=== PATIENT | male | born 1955 | race Caucasian/White ===

== ENCOUNTER 2017-05-18 16:32 | Inpatient (IN) | payer MEDICAID ==
[~2017-05-18] VITALS: Ht 198.1 cm; Wt 71.2 kg
[~2017-05-18 16:32] MED LIST: AMLO10TA2 PO; AMOX PO; AMOX500C2 PO; CARV25TA PO; CHOL100018 PO; LEVO50TA11 PO; MAGN400T25 PO; MYCOPHENOLATE PO; PANT40TA25 PO; TACR1CAP23 PO; [UNRECOGNIZED DRUG - OTHER] PO
[2017-05-18 17:16] LABS: BASOPHILS % (AUTO) 0.1 % (0.0-5.0); EOSINOPHILS % (AUTO) 0.1 % (0.0-8.0); HEMATOCRIT 24.8 % (42-54); LYMPHOCYTES % (AUTO) 1.8 % (21.0-51.0); MEAN CORPUSCULAR HEMOGLOBIN 30.3 pg (27.0-33.0); MEAN CORPUSCULAR HGB CONC 33.3 g/dL (32.0-36.0); MONOCYTES % (AUTO) 5.2 % (3.0-13.0); NEUTROPHILS % (AUTO) 92.8 % (40.0-77.0); NUCLEATED RED BLOOD CELLS 0.1 % (0.0-0.19); PLATELET COUNT (AUTO) 182 K/uL (130-400); RED BLOOD CELL COUNT(AUTO) 2.72 MIL/uL (4.50-6.20); RED CELL DISTRIBUTION WIDTH 15.9 % (11.0-15.5); WHITE BLOOD COUNT (AUTO) 5.3 K/uL (4.8-10.8)
[2017-05-18 17:39] LABS: APPEARANCE,URINE CLOUDY (CLEAR); BILIRUBIN,URINE NEGATIVE (NEGATIVE); COLOR,URINE YELLOW (YELLOW); GLUCOSE, URINE (UA) >=1000 mg/dL (NEGATIVE); KETONES,URINE NEGATIVE (NEGATIVE); LEUKOCYTE ESTERASE ,URINE SMALL (NEGATIVE); NITRATE,URINE NEGATIVE (NEGATIVE); OCCULT BLOOD,URINE TRACE-INTACT (NEGATIVE); PH,URINE 5.5 (5.0-8.0); PROTEIN,URINE NEGATIVE (NEGATIVE); UROBILINOGEN,URINE 0.2 mg/dL (0.2-1.0)
[2017-05-18 17:45] LABS: ALANINE AMINOTRANSFERASE 15 U/L (12-78); ALBUMIN 1.5 g/dL (3.5-5.0); ASPARTATE AMINOTRANSFERASE 9 U/L (10-37); BILIRUBIN,TOTAL 0.4 mg/dL (0.2-1.0); CARBON DIOXIDE 26 mmol/L (21-32); CHLORIDE 95 mmol/L (101-111); CREATINE KINASE MB < 0.5 ng/mL (0.5-3.6); CREATINE KINASE, TOTAL 11 U/L (21-232); CREATININE 1.1 mg/dL (0.5-1.5); GLOMERULAR FILTR. RATE CALC 73 mL/min (>60); POTASSIUM 4.8 mmol/L (3.5-5.1); SODIUM SERUM 128 mmol/L (136-145); TOTAL PROTEIN, SERUM 6.3 g/dL (6.0-8.3); UREA NITROGEN, BLOOD 22 mg/dL (7-18)
[2017-05-18 17:45] LABS: BACTERIA,URINE Few /HPF (None Seen); RBC,URINE 0-1 /HPF (0-1); YEAST,URINE BUDDING Many /HPF (None Seen)
[2017-05-18 17:47] LABS: GLUCOSE,RANDOM 581 mg/dL (70-105)
[2017-05-18] MEDS ORDERED: ONDANSETRON HCL 4 MG/2 ML VIAL ONE (18:25)
[2017-05-18] MEDS ORDERED: MORPHINE SULFATE 4 MG/1ML SYG ONE (18:25)
[2017-05-18] MEDS ORDERED: SODIUM CHLORIDE 0.9% 1000ML 1,000 ML IV ONE (19:48)
[2017-05-18] MEDS ORDERED: INSULIN HUMULIN R 100 UNIT/ML 3ML ONE (19:49)
[2017-05-18] MEDS ORDERED: CEFTRIAXONE SODIUM 1 GM ONE (20:55)
[2017-05-18] MEDS ORDERED: POTASSIUM CHLORIDE 10% ELIXIR 20 MEQ/15 ML UDCUP PO PRN (21:30)
[2017-05-18] MEDS ORDERED: LIDOCAINE HCL-MPF 1% 2ML VIAL IJ PRN (21:30)
[2017-05-18] MEDS ORDERED: POTASSIUM CHLORIDE 20MEQ/100ML 100 ML IV PRN (21:30)
[2017-05-18] MEDS ORDERED: CLONIDINE HCL 0.1 MG TABLET PO PRN (21:30)
[2017-05-18] MEDS ORDERED: GLUCAGON 1MG KIT 1 MG ML IM PRN (21:30)
[2017-05-18] MEDS ORDERED: NITROGLYCERIN 0.4 MG SL TAB SL PRN (21:30)
[2017-05-18] MEDS ORDERED: LACTULOSE 20 GM/30 ML UDCUP PO PRN (21:30)
[2017-05-18] MEDS ORDERED: ACETAMINOPHEN 325 MG TAB PO PRN (21:30)
[2017-05-18] MEDS ORDERED: ZOLPIDEM TARTRATE 5 MG TAB PO PRN (21:30)
[2017-05-18] MEDS ORDERED: DEXTROSE 50%-WATER 50 ML DISP.SYRIN IV PRN (21:30)
[2017-05-18] MEDS ORDERED: POTASSIUM CHLORIDE 20 MEQ ERTAB PO PRN (21:30)
[2017-05-18] MEDS ORDERED: SODIUM CHLORIDE 0.9% 1000ML 1,000 ML IV SCH (21:30)
[2017-05-19] MEDS ORDERED: SODIUM CHLORIDE 0.9% 1000ML 1,000 ML IV SCH (01:23)
[2017-05-19] MEDS ORDERED: POTASSIUM CHLORIDE 20MEQ/100ML 100 ML IV PRN (01:30)
[2017-05-19] MEDS ORDERED: POTASSIUM CHLORIDE 10% ELIXIR 20 MEQ/15 ML UDCUP PO PRN (01:30)
[2017-05-19] MEDS ORDERED: LACTULOSE 20 GM/30 ML UDCUP PO PRN (01:30)
[2017-05-19] MEDS ORDERED: ONDANSETRON HCL 4 MG/2 ML VIAL IVP PRN (01:30)
[2017-05-19] MEDS ORDERED: POTASSIUM CHLORIDE 20 MEQ ERTAB PO PRN (01:30)
[2017-05-19] MEDS ORDERED: DEXTROSE 50%-WATER 50 ML DISP.SYRIN IV PRN (01:30)
[2017-05-19] MEDS ORDERED: MORPHINE SULFATE 2 MG/ML 1ML SYG IVP PRN ×2 (01:30)
[2017-05-19] MEDS ORDERED: ACETAMINOPHEN 325 MG TAB PO PRN (01:30)
[2017-05-19] MEDS ORDERED: GLUCAGON 1MG KIT 1 MG ML IM PRN (01:30)
[2017-05-19] MEDS ORDERED: LIDOCAINE HCL-MPF 1% 2ML VIAL IVP PRN (01:30)
[2017-05-19 01:45] VITALS: BP 99/58
[2017-05-19] MEDS ORDERED: METF500T6 PO (02:43)
[2017-05-19] MEDS ORDERED: ACET-2743 PO (02:43)
[2017-05-19] MEDS ORDERED: MAGOX PO (02:43)
[2017-05-19] MEDS ORDERED: HYDR-4064 PO (02:43)
[2017-05-19] MEDS ORDERED: FERR-82 PO (02:43)
[2017-05-19] MEDS ORDERED: LEVO50TA11 PO (02:43)
[2017-05-19] MEDS ORDERED: TACR1CAP10 PO ×2 (02:43)
[2017-05-19] MEDS ORDERED: PRED20TA3 PO (02:43)
[2017-05-19] MEDS ORDERED: MEROPENEM 1 GM VIAL IVP SCH (03:00)
[2017-05-19 04:00] VITALS: BP 102/61
[2017-05-19 04:55] LABS: BASOPHILS % (AUTO) 0.3 % (0.0-5.0); EOSINOPHILS % (AUTO) 0.9 % (0.0-8.0); HEMATOCRIT 22.9 % (42-54); LYMPHOCYTES % (AUTO) 3.7 % (21.0-51.0); MEAN CORPUSCULAR HEMOGLOBIN 30.2 pg (27.0-33.0); MEAN CORPUSCULAR HGB CONC 33.7 g/dL (32.0-36.0); MEAN CORPUSCULAR VOLUME 89.5 fL (79-99); MONOCYTES % (AUTO) 6.1 % (3.0-13.0); NUCLEATED RED BLOOD CELLS 0.1 % (0.0-0.19); PLATELET COUNT (AUTO) 190 K/uL (130-400); RED BLOOD CELL COUNT(AUTO) 2.56 MIL/uL (4.50-6.20); RED CELL DISTRIBUTION WIDTH 16.2 % (11.0-15.5); WHITE BLOOD COUNT (AUTO) 5.1 K/uL (4.8-10.8)
[2017-05-19] MEDS ORDERED: PNEUMOCOCCAL VACCINE POLYVALENT 0.5 ML/VIAL [PPV] IM SCH (05:00)
[2017-05-19] MEDS ORDERED: ZOSYN 2.25GM+NS 50ML 50 ML IV SCH (05:00)
[2017-05-19 05:07] LABS: POTASSIUM 4.5 mmol/L (3.5-5.1)
[2017-05-19 05:14] LABS: HEMOGLOBIN A1C 8.1 % (4.0-6.0)
[2017-05-19] MEDS: INSULIN HUMULIN R 100 UNIT/ML 3ML SQ SCH ×4 (06:51→22:21)
[2017-05-19] MEDS ORDERED: INSULIN R PO SSI SQ SCH (07:30)
[2017-05-19 08:00] VITALS: BP 109/58
[2017-05-19] MEDS: FAMOTIDINE 20MG TAB 20 MG TAB PO SCH ×2 (08:40→22:28)
[2017-05-19] MEDS ORDERED: VANCOMYCIN 1GM+NS 250ML 250 ML IV SCH (09:15)
[2017-05-19] MEDS ORDERED: VANCOMYCIN PROTOCOL PER PHARMACY IV PRN (09:15)
[2017-05-19] MEDS: TACROLIMUS 1 MG CAPSULE PO SCH ×2 (09:30→21:00)
[2017-05-19 10:05] LABS: RETICULOCYTE % (AUTO) 2.37 % (0.42-2.23)
[2017-05-19 11:00] VITALS: BP 109/62
[2017-05-19 11:03] LABS: % IRON SATURATION 19.2 % (30-44)
[2017-05-19] MEDS: HYDROCODONE/ACETAMINOPHEN 7.5/325 MG TAB PO PRN (11:27)
[2017-05-19] MEDS: INSULIN GLARGINE 100 UNITS/ML 10 ML VIAL SQ SCH ×2 (11:30→22:23)
[2017-05-19 16:00] VITALS: BP 112/65
[2017-05-19] MEDS ORDERED: EPOETIN ALFA 10,000 UNIT/ML VIAL SQ SCH (19:30)
[2017-05-19 20:00] VITALS: BP 90/54
[2017-05-19] MEDS ORDERED: COMPOUND IV MISC 1 EACH IVSOLN MISC PRN (20:00)
[2017-05-19] MEDS: MAGNESIUM OXIDE 400 MG TABLET PO SCH (21:00)
[2017-05-19] MEDS ORDERED: TACROLIMUS 1 MG CAPSULE PO SCH (21:00)
[2017-05-20] VITALS: BP 102/65
[2017-05-20 04:00] VITALS: BP 113/58
[2017-05-20 04:18] LABS: BASOPHILS % (AUTO) 0.2 % (0.0-5.0); HEMATOCRIT 22.3 % (42-54); LYMPHOCYTES % (AUTO) 7.3 % (21.0-51.0); MEAN CORPUSCULAR HEMOGLOBIN 28.6 pg (27.0-33.0); MEAN CORPUSCULAR HGB CONC 32.6 g/dL (32.0-36.0); MEAN CORPUSCULAR VOLUME 87.6 fL (79-99); MONOCYTES % (AUTO) 10.8 % (3.0-13.0); NEUTROPHILS % (AUTO) 80.7 % (40.0-77.0); PLATELET COUNT (AUTO) 212 K/uL (130-400); RED BLOOD CELL COUNT(AUTO) 2.55 MIL/uL (4.50-6.20); RED CELL DISTRIBUTION WIDTH 15.6 % (11.0-15.5); WHITE BLOOD COUNT (AUTO) 4.5 K/uL (4.8-10.8)
[2017-05-20 04:38] LABS: POTASSIUM 4.7 mmol/L (3.5-5.1)
[2017-05-20] MEDS: INSULIN HUMULIN R 100 UNIT/ML 3ML SQ SCH ×4 (06:52→21:55)
[2017-05-20 07:00] VITALS: BP 102/57
[2017-05-20] MEDS: TACROLIMUS 1 MG CAPSULE PO SCH ×2 (09:00→21:00)
[2017-05-20] MEDS: METFORMIN HCL 500 MG TABLET PO SCH (09:00)
[2017-05-20] MEDS: LEVOTHYROXINE 50 MCG TABLET PO SCH (09:00)
[2017-05-20] MEDS: MAGNESIUM OXIDE 400 MG TABLET PO SCH ×2 (09:00→21:00)
[2017-05-20] MEDS: PREDNISONE 20 MG TABLET PO SCH (09:00)
[2017-05-20] MEDS: FAMOTIDINE 20MG TAB 20 MG TAB PO SCH ×2 (09:00→21:00)
[2017-05-20] MEDS: FERROUS SULFATE 325 MG TABLET.DR PO SCH ×3 (09:00→21:00)
[2017-05-20] MEDS: IRON SUCROSE COMPLEX 100 MG in SODIUM CHLORIDE 0.9% 50 ML IV SCH (10:43)
[2017-05-20 11:00] VITALS: BP 93/58
[2017-05-20 19:59] VITALS: BP 99/57
[2017-05-20] MEDS ORDERED: INSULIN GLARGINE 100 UNITS/ML 10 ML VIAL SQ SCH (21:00)
[2017-05-21] VITALS: BP 101/59
[2017-05-21] MEDS ORDERED: MORPHINE SULFATE 4 MG/1ML SYG ONE (01:04)
[2017-05-21] MEDS: HYDROCODONE/ACETAMINOPHEN 7.5/325 MG TAB PO PRN (03:59)
[2017-05-21 04:00] VITALS: BP 144/79
[2017-05-21 05:39] LABS: BASOPHILS % (AUTO) 0.5 % (0.0-5.0); EOSINOPHILS % (AUTO) 1.5 % (0.0-8.0); HEMATOCRIT 25.7 % (42-54); LYMPHOCYTES % (AUTO) 7.1 % (21.0-51.0); MEAN CORPUSCULAR HEMOGLOBIN 27.8 pg (27.0-33.0); MEAN CORPUSCULAR HGB CONC 31.8 g/dL (32.0-36.0); MEAN CORPUSCULAR VOLUME 87.4 fL (79-99); NEUTROPHILS % (AUTO) 82.9 % (40.0-77.0); PLATELET COUNT (AUTO) 433 K/uL (130-400); RED BLOOD CELL COUNT(AUTO) 2.94 MIL/uL (4.50-6.20); RED CELL DISTRIBUTION WIDTH 15.9 % (11.0-15.5)
[2017-05-21 05:44] LABS: POTASSIUM 4.1 mmol/L (3.5-5.1)
[2017-05-21 08:00] VITALS: BP 116/70
[2017-05-21] MEDS: LEVOTHYROXINE 50 MCG TABLET PO SCH (09:00)
[2017-05-21] MEDS: FERROUS SULFATE 325 MG TABLET.DR PO SCH ×3 (09:00→21:00)
[2017-05-21] MEDS: TACROLIMUS 1 MG CAPSULE PO SCH ×2 (09:00→21:00)
[2017-05-21] MEDS: MAGNESIUM OXIDE 400 MG TABLET PO SCH ×2 (09:00→21:00)
[2017-05-21] MEDS: METFORMIN HCL 500 MG TABLET PO SCH (09:00)
[2017-05-21] MEDS: FAMOTIDINE 20MG TAB 20 MG TAB PO SCH ×2 (09:00→21:16)
[2017-05-21] MEDS: PREDNISONE 20 MG TABLET PO SCH (09:00)
[2017-05-21 11:28] VITALS: BP 109/66
[2017-05-21] MEDS: IRON SUCROSE COMPLEX 100 MG in SODIUM CHLORIDE 0.9% 50 ML IV SCH (12:35)
[2017-05-21] MEDS: INSULIN HUMULIN R 100 UNIT/ML 3ML SQ SCH ×2 (12:45→21:12)
[2017-05-21 16:00] VITALS: BP 105/63
[2017-05-21 20:00] VITALS: BP 111/66
[2017-05-21] MEDS ORDERED: INSULIN GLARGINE 100 UNITS/ML 10 ML VIAL SQ SCH ×2 (21:00)
[2017-05-22] VITALS: BP 114/62
[2017-05-22 04:00] VITALS: BP 104/64
[2017-05-22] MEDS ORDERED: MORPHINE SULFATE 4 MG/1ML SYG ONE (06:39)
[2017-05-22] MEDS: INSULIN HUMULIN R 100 UNIT/ML 3ML SQ SCH (07:30)
[2017-05-22 08:00] VITALS: BP 114/64
[2017-05-22] MEDS: TACROLIMUS 1 MG CAPSULE PO SCH (09:00)
[2017-05-22] MEDS: FERROUS SULFATE 325 MG TABLET.DR PO SCH (09:00)
[2017-05-22] MEDS: METFORMIN HCL 500 MG TABLET PO SCH (09:00)
[2017-05-22] MEDS: PREDNISONE 20 MG TABLET PO SCH (09:00)
[2017-05-22] MEDS: MAGNESIUM OXIDE 400 MG TABLET PO SCH (09:00)
[2017-05-22] MEDS: LEVOTHYROXINE 50 MCG TABLET PO SCH (09:00)
[2017-05-22] MEDS: FAMOTIDINE 20MG TAB 20 MG TAB PO SCH (09:00)
[2017-05-22 12:00] VITALS: BP 113/64
== END 2017-05-22 16:15 | disposition home or self-care (01) | DRG 500 ==
LOC: EDH 16:32 → OBSVTOIN 16:33 → EDHIP 16:33 → 3DH 05-19 00:56
PROVIDERS: ADMIT Family Medicine; ATTEND Family Medicine
PROC: 3E0234Z Introduction of Serum, Toxoid and Vaccine into Muscle, Percutaneous Approach (ICD-10-PCS; principal; 2017-05-19)
DX: C76.3 Malignant neoplasm of pelvis (principal); E43 Unspecified severe protein-calorie malnutrition; L89.229 Pressure ulcer of left hip, unspecified stage; L89.219 Pressure ulcer of right hip, unspecified stage; I82.91 Chronic embolism and thrombosis of unspecified vein; G82.20 Paraplegia, unspecified; E11.22 Type 2 diabetes mellitus with diabetic chronic kidney disease; Z94.0 Kidney transplant status; L89.329 Pressure ulcer of left buttock, unspecified stage; E11.65 Type 2 diabetes mellitus with hyperglycemia; E86.0 Dehydration; E87.1 Hypo-osmolality and hyponatremia; I95.9 Hypotension, unspecified; D64.9 Anemia, unspecified; N39.0 Urinary tract infection, site not specified; Z74.01 Bed confinement status; E03.9 Hypothyroidism, unspecified; I12.0 Hypertensive chronic kidney disease with stage 5 chronic kidney disease or end stage renal disease; N18.6 End stage renal disease; Z87.440 Personal history of urinary (tract) infections; Z92.3 Personal history of irradiation; Z99.2 Dependence on renal dialysis; Z16.24 Resistance to multiple antibiotics; L89.319 Pressure ulcer of right buttock, unspecified stage; Z23 Encounter for immunization
CPT/HCPCS: 36415; 80048; 80053; 81001; 82009; 82550; 82553; 82607; 82728; 82746; 82948; 83036; 83605; 84484; 85025; 86850; 86900; 86901; 87040; 87070; 87076; 87088; 87186; 90732; 93005; A6252; A6253; G0009; J0696; J0885; J1756; J1815; J2185; J2270; J2405; J2543; J7030; J7070; J7507

== ENCOUNTER 2017-05-26 15:30 | Inpatient (IN) | payer MEDICAID ==
[~2017-05-26] VITALS: Ht 198.1 cm; Wt 72.7 kg
[~2017-05-26 15:30] MED LIST changes: +ACET-2743 PO; -AMLO10TA2 PO; -AMOX PO; -AMOX500C2 PO; -CARV25TA PO; -CHOL100018 PO; +FERR-82 PO; +HYDR-4064 PO; -MAGN400T25 PO; +MAGOX PO; +METF500T6 PO; -MYCOPHENOLATE PO; -PANT40TA25 PO; +PRED20TA3 PO; +TACR1CAP10 PO; -TACR1CAP23 PO; -[UNRECOGNIZED DRUG - OTHER] PO
[2017-05-26 16:30] LABS: BASOPHILS % (AUTO) 0.3 % (0.0-5.0); EOSINOPHILS % (AUTO) 0.1 % (0.0-8.0); HEMATOCRIT 22.2 % (42-54); MEAN CORPUSCULAR HEMOGLOBIN 28.9 pg (27.0-33.0); MEAN CORPUSCULAR HGB CONC 32.7 g/dL (32.0-36.0); MEAN CORPUSCULAR VOLUME 88.6 fL (79-99); MONOCYTES % (AUTO) 5.1 % (3.0-13.0); NEUTROPHILS % (AUTO) 92.5 % (40.0-77.0); PLATELET COUNT (AUTO) 200 K/uL (130-400); RED BLOOD CELL COUNT(AUTO) 2.51 MIL/uL (4.50-6.20); RED CELL DISTRIBUTION WIDTH 16.5 % (11.0-15.5); WHITE BLOOD COUNT (AUTO) 7.3 K/uL (4.8-10.8)
[2017-05-26 17:21] LABS: ALBUMIN 1.2 g/dL (3.5-5.0); BILIRUBIN,TOTAL 0.5 mg/dL (0.2-1.0); CREATININE 1.1 mg/dL (0.5-1.5); POTASSIUM 4.9 mmol/L (3.5-5.1); TOTAL PROTEIN, SERUM 5.7 g/dL (6.0-8.3)
[2017-05-26] MEDS ORDERED: ONDANSETRON HCL 4 MG/2 ML VIAL IV PRN (17:45)
[2017-05-26] MEDS ORDERED: GUAIFENESIN-DM 200/20 MG 10 ML PO PRN (17:45)
[2017-05-26] MEDS ORDERED: ACETAMINOPHEN 325 MG TAB PO PRN ×2 (17:45)
[2017-05-26] MEDS ORDERED: LACTULOSE 20 GM/30 ML UDCUP PO PRN (17:45)
[2017-05-26] MEDS ORDERED: INSULIN HUMULIN R 100 UNIT/ML 3ML ONE (18:04)
[2017-05-26] MEDS: FAMOTIDINE/PF 20 MG/2 ML VIAL IV SCH (21:00)
[2017-05-26] MEDS ORDERED: FAMOTIDINE/PF 20 MG/2 ML VIAL IV ONE (22:21)
[2017-05-26] MEDS ORDERED: MORPHINE SULFATE 2 MG/ML 1ML SYG ONE (22:21)
[2017-05-27] MEDS ORDERED: VANCOMYCIN 1GM+NS 250ML 250 ML IV SCH
[2017-05-27] MEDS ORDERED: VANCOMYCIN PROTOCOL PER PHARMACY IV SCH
[2017-05-27] MEDS ORDERED: MEROPENEM 500 MG VIAL ONE (00:51)
[2017-05-27 01:45] VITALS: BP 93/53
[2017-05-27 04:00] VITALS: BP 101/60
[2017-05-27] MEDS: MORPHINE SULFATE 2 MG/ML 1ML SYG IV PRN (04:06)
[2017-05-27 05:35] LABS: HEMATOCRIT 21.1 % (42-54); MEAN CORPUSCULAR HEMOGLOBIN 27.7 pg (27.0-33.0); MEAN CORPUSCULAR HGB CONC 31.3 g/dL (32.0-36.0); MEAN CORPUSCULAR VOLUME 88.5 fL (79-99); PLATELET COUNT (AUTO) 212 K/uL (130-400); RED BLOOD CELL COUNT(AUTO) 2.39 MIL/uL (4.50-6.20); RED CELL DISTRIBUTION WIDTH 16.7 % (11.0-15.5); WHITE BLOOD COUNT (AUTO) 7.6 K/uL (4.8-10.8)
[2017-05-27 05:45] LABS: APPEARANCE,URINE Turbid (CLEAR); BILIRUBIN,URINE Negative (NEGATIVE); COLOR,URINE Dark Yellow (YELLOW); GLUCOSE, URINE (UA) >=1000 mg/dL (NEGATIVE); KETONES,URINE Trace mg/dL (NEGATIVE); LEUKOCYTE ESTERASE ,URINE Moderate (NEGATIVE); NITRATE,URINE Positive (NEGATIVE); OCCULT BLOOD,URINE Nonhemolyzed Trace (NEGATIVE); PROTEIN,URINE POS 1+ (NEGATIVE)
[2017-05-27 05:52] LABS: CREATININE 1.1 mg/dL (0.5-1.5); POTASSIUM 4.7 mmol/L (3.5-5.1); THYROID STIMULATING HORMONE 7.35 uIU/mL (0.36-3.74)
[2017-05-27 05:54] LABS: BACTERIA,URINE Many /HPF (None Seen); MUCUS,URINE Few LPF (None Seen); SQUAMOUS EPITHELIAL CELL,UR Rare /LPF (0-2); WBC,URINE TNTC /HPF (0-1); YEAST,URINE BUDDING Many /HPF (None Seen)
[2017-05-27] MEDS ORDERED: MEROPENEM 500MG+NS 50ML 50 ML IV SCH (06:00)
[2017-05-27] MEDS ORDERED: DEXTROSE 50%-WATER 50 ML DISP.SYRIN IV PRN (06:45)
[2017-05-27] MEDS ORDERED: GLUCAGON 1MG KIT 1 MG ML IM PRN (06:45)
[2017-05-27] MEDS: MEROPENEM 500 MG VIAL IVP SCH ×2 (06:58→14:42)
[2017-05-27 07:00] VITALS: BP 99/57
[2017-05-27] MEDS: INSULIN HUMULIN R 100 UNIT/ML 3ML SQ SCH ×4 (08:05→22:23)
[2017-05-27] MEDS: FAMOTIDINE/PF 20 MG/2 ML VIAL IV SCH ×2 (08:05→22:07)
[2017-05-27] MEDS ORDERED: HYDROCODONE/ACETAMINOPHEN 7.5/325 MG TAB PO PRN (10:15)
[2017-05-27] MEDS ORDERED: SODIUM CHLORIDE 0.9% 250 ML IV ONE (10:39)
[2017-05-27 11:00] VITALS: BP 94/57
[2017-05-27] MEDS: FERROUS SULFATE 325 MG TABLET.DR PO SCH ×2 (14:42→21:00)
[2017-05-27] MEDS ORDERED: CEFTAZIDIME 1GM+NS 50ML 50 ML IV SCH (15:45)
[2017-05-27 16:00] VITALS: BP 156/89
[2017-05-27] MEDS: CEFTAZIDIME PENTAHYDRATE 1 GM/VIAL IVP SCH (18:05)
[2017-05-27 20:00] VITALS: BP 92/50
[2017-05-27] MEDS ORDERED: COMPOUND IV MISC 1 EACH IVSOLN MISC PRN (20:15)
[2017-05-27] MEDS: MAGNESIUM OXIDE 400 MG TABLET PO SCH (21:00)
[2017-05-27] MEDS ORDERED: TACROLIMUS 1 MG CAPSULE PO SCH (21:00)
[2017-05-27] MEDS: TACROLIMUS 1 MG CAPSULE PO SCH (21:00)
[2017-05-27] MEDS: VANCOMYCIN 1GM+NS 250ML 250 ML IV SCH (22:06)
[2017-05-27] MEDS: INSULIN GLARGINE 100 UNITS/ML 10 ML VIAL SQ SCH (22:24)
[2017-05-28] VITALS: BP 88/53
[2017-05-28] MEDS: CEFTAZIDIME PENTAHYDRATE 1 GM/VIAL IVP SCH ×3 (01:11→17:34)
[2017-05-28] MEDS: AMINOCAPROIC ACID 500 MG TABLET PO SCH ×4 (01:12→17:28)
[2017-05-28 04:00] VITALS: BP 106/60
[2017-05-28] MEDS: VANCOMYCIN 1GM+NS 250ML 250 ML IV SCH ×2 (05:34→17:28)
[2017-05-28 05:51] LABS: HEMATOCRIT 24.8 % (42-54); MEAN CORPUSCULAR HEMOGLOBIN 28.1 pg (27.0-33.0); MEAN CORPUSCULAR HGB CONC 32.8 g/dL (32.0-36.0); MEAN CORPUSCULAR VOLUME 85.7 fL (79-99); PLATELET COUNT (AUTO) 196 K/uL (130-400); RED BLOOD CELL COUNT(AUTO) 2.89 MIL/uL (4.50-6.20); WHITE BLOOD COUNT (AUTO) 4.9 K/uL (4.8-10.8)
[2017-05-28 05:58] LABS: CREATININE 1.2 mg/dL (0.5-1.5); MAGNESIUM 1.7 mg/dL (1.80-2.40); POTASSIUM 4.7 mmol/L (3.5-5.1)
[2017-05-28 06:14] LABS: BAND NEUTROPHILS % (MANUAL) 6 % (0-2); BASOPHILS % (MANUAL) 1 % (0-2); EOSINOPHILS % (MANUAL) 1 % (1-6); LYMPHOCYTES % (MANUAL) 3 % (22-44); MAN.DIFF COMMENT-IMPRESSION MANUAL DIFFERENTIAL; MONOCYTES % (MANUAL) 5 % (2-9); PLATELET MORPHOLOGY COMMENT ADEQUATE; REACTIVE LYMPHOCYTES 2 % (0-0); SEGMENTED NEUTROPHILS % 82 % (40-70)
[2017-05-28] MEDS: LEVOTHYROXINE 50 MCG TABLET PO SCH (06:17)
[2017-05-28 07:00] VITALS: BP 93/56
[2017-05-28] MEDS: INSULIN GLARGINE 100 UNITS/ML 10 ML VIAL SQ SCH ×2 (07:20→21:22)
[2017-05-28] MEDS: INSULIN HUMULIN R 100 UNIT/ML 3ML SQ SCH ×4 (07:22→21:21)
[2017-05-28] MEDS: MAGNESIUM OXIDE 400 MG TABLET PO SCH ×2 (09:43→21:00)
[2017-05-28] MEDS: PREDNISONE 20 MG TABLET PO SCH (09:43)
[2017-05-28] MEDS: FERROUS SULFATE 325 MG TABLET.DR PO SCH ×3 (09:43→21:00)
[2017-05-28] MEDS: FAMOTIDINE/PF 20 MG/2 ML VIAL IV SCH ×2 (09:43→21:14)
[2017-05-28] MEDS: TACROLIMUS 1 MG CAPSULE PO SCH ×2 (09:44→21:00)
[2017-05-28] MEDS ORDERED: CEFEPIME HCL 1 GM VIAL ONE (09:56)
[2017-05-28] MEDS: IRON SUCROSE COMPLEX 300 MG in SODIUM CHLORIDE 0.9% 50 ML IV SCH (09:57)
[2017-05-28] MEDS: MORPHINE SULFATE 2 MG/ML 1ML SYG IV PRN ×2 (09:57→22:33)
[2017-05-28 11:00] VITALS: BP 83/51
[2017-05-28 16:00] VITALS: BP 151/70
[2017-05-28 20:00] VITALS: BP 94/56
[2017-05-28] MEDS ORDERED: INSULIN GLARGINE 100 UNITS/ML 10 ML VIAL SQ ONE (20:48)
[2017-05-29] VITALS (7 sets, daily range): BP systolic 90–123; BP diastolic 54–66
[2017-05-29] MEDS: AMINOCAPROIC ACID 500 MG TABLET PO SCH ×5 (00:02→23:43)
[2017-05-29] MEDS: CEFTAZIDIME PENTAHYDRATE 1 GM/VIAL IVP SCH ×4 (00:02→23:43)
[2017-05-29] MEDS: VANCOMYCIN 1GM+NS 250ML 250 ML IV SCH (04:00)
[2017-05-29 04:39] LABS: HEMATOCRIT 22.6 % (42-54)
[2017-05-29] MEDS: LEVOTHYROXINE 50 MCG TABLET PO SCH (06:30)
[2017-05-29 06:58] LABS: CREATININE 1.1 mg/dL (0.5-1.5); POTASSIUM 4.7 mmol/L (3.5-5.1)
[2017-05-29] MEDS: INSULIN HUMULIN R 100 UNIT/ML 3ML SQ SCH ×4 (07:30→20:35)
[2017-05-29] MEDS ORDERED: INSULIN GLARGINE 100 UNITS/ML 10 ML VIAL SQ ONE ×2 (08:14→20:06)
[2017-05-29] MEDS: PREDNISONE 20 MG TABLET PO SCH (09:00)
[2017-05-29] MEDS: MAGNESIUM OXIDE 400 MG TABLET PO SCH ×2 (09:00→20:30)
[2017-05-29] MEDS: FERROUS SULFATE 325 MG TABLET.DR PO SCH ×3 (09:00→20:30)
[2017-05-29] MEDS: TACROLIMUS 1 MG CAPSULE PO SCH ×2 (09:00→20:30)
[2017-05-29] MEDS ORDERED: INSULIN GLARGINE 100 UNITS/ML 10 ML VIAL SQ SCH (09:15)
[2017-05-29] MEDS: FAMOTIDINE/PF 20 MG/2 ML VIAL IV SCH ×2 (09:21→20:46)
[2017-05-29] MEDS: IRON SUCROSE COMPLEX 300 MG in SODIUM CHLORIDE 0.9% 50 ML IV SCH (09:24)
[2017-05-29] MEDS ORDERED: COMPOUND IV REFRIGERATED 1 EACH IVSOLN MISC PRN (13:00)
[2017-05-29] MEDS: VANCOMYCIN 750MG + NS 250 ML IV SCH ×2 (20:44)
[2017-05-29] MEDS: INSULIN GLARGINE 100 UNITS/ML 10 ML VIAL SQ SCH (20:46)
[2017-05-30 03:00] VITALS: BP 107/64
[2017-05-30] MEDS ORDERED: HONEY 1 APPL/ML TUBE TP PRN (04:45)
[2017-05-30] MEDS: MORPHINE SULFATE 2 MG/ML 1ML SYG IV PRN (05:04)
[2017-05-30] MEDS: INSULIN HUMULIN R 100 UNIT/ML 3ML SQ SCH ×4 (05:58→21:01)
[2017-05-30] MEDS: AMINOCAPROIC ACID 500 MG TABLET PO SCH ×3 (06:00→18:00)
[2017-05-30] MEDS: LEVOTHYROXINE 50 MCG TABLET PO SCH (06:05)
[2017-05-30] MEDS: INSULIN GLARGINE 100 UNITS/ML 10 ML VIAL SQ SCH ×2 (06:22→20:53)
[2017-05-30 07:58] VITALS: BP 107/64
[2017-05-30] MEDS: PREDNISONE 20 MG TABLET PO SCH (09:00)
[2017-05-30] MEDS ORDERED: HONEY 1 APPL/ML TUBE TP SCH ×2 (09:00→13:19)
[2017-05-30] MEDS: TACROLIMUS 1 MG CAPSULE PO SCH ×2 (09:00→21:00)
[2017-05-30] MEDS: FERROUS SULFATE 325 MG TABLET.DR PO SCH ×3 (09:00→21:00)
[2017-05-30] MEDS: MAGNESIUM OXIDE 400 MG TABLET PO SCH ×2 (09:00→21:00)
[2017-05-30] MEDS: FAMOTIDINE/PF 20 MG/2 ML VIAL IV SCH ×2 (10:34→20:50)
[2017-05-30] MEDS: CEFTAZIDIME PENTAHYDRATE 1 GM/VIAL IVP SCH ×2 (10:34→19:55)
[2017-05-30] MEDS: VANCOMYCIN 750MG + NS 250 ML IV SCH ×4 (10:34→21:09)
[2017-05-30] MEDS: IRON SUCROSE COMPLEX 300 MG in SODIUM CHLORIDE 0.9% 50 ML IV SCH (10:54)
[2017-05-30 12:03] VITALS: BP 104/62
[2017-05-30 15:53] VITALS: BP 108/67
[2017-05-30] MEDS: AMICAR PO SCH (18:00)
[2017-05-30 19:00] VITALS: BP 119/64
[2017-05-30] MEDS: SODIUM HYPOCHLORITE 0.25% [HALF STRENGTH] 473 ML TOPICAL SOLN TP SCH (21:02)
[2017-05-30 23:00] VITALS: BP 117/64
[2017-05-31] MEDS: CEFTAZIDIME PENTAHYDRATE 1 GM/VIAL IVP SCH ×3 (00:07→17:08)
[2017-05-31] MEDS: HYDROMORPHONE HCL 0.5 MG/0.5 ML ML IVP PRN ×3 (00:13→22:52)
[2017-05-31 03:00] VITALS: BP 123/97
[2017-05-31] MEDS: HONEY 1 APPL/ML TUBE TP SCH (05:50)
[2017-05-31] MEDS: SODIUM HYPOCHLORITE 0.25% [HALF STRENGTH] 473 ML TOPICAL SOLN TP SCH ×2 (05:50→21:00)
[2017-05-31] MEDS: LEVOTHYROXINE 50 MCG TABLET PO SCH (06:05)
[2017-05-31] MEDS: INSULIN HUMULIN R 100 UNIT/ML 3ML SQ SCH ×4 (06:09→20:59)
[2017-05-31] MEDS: MORPHINE SULFATE 2 MG/ML 1ML SYG IV PRN ×2 (06:33→18:56)
[2017-05-31 06:50] LABS: MEAN CORPUSCULAR HGB CONC 33.6 g/dL (32.0-36.0); MEAN CORPUSCULAR VOLUME 86.4 fL (79-99); PLATELET COUNT (AUTO) 177 K/uL (130-400); RED BLOOD CELL COUNT(AUTO) 2.89 MIL/uL (4.50-6.20); RED CELL DISTRIBUTION WIDTH 16.5 % (11.0-15.5); WHITE BLOOD COUNT (AUTO) 5.1 K/uL (4.8-10.8)
[2017-05-31 06:54] LABS: CREATININE 0.8 mg/dL (0.5-1.5); POTASSIUM 4.2 mmol/L (3.5-5.1)
[2017-05-31 08:00] VITALS: BP 109/67
[2017-05-31] MEDS: PREDNISONE 20 MG TABLET PO SCH (09:00)
[2017-05-31] MEDS: MAGNESIUM OXIDE 400 MG TABLET PO SCH ×2 (09:00→21:00)
[2017-05-31] MEDS: TACROLIMUS 1 MG CAPSULE PO SCH ×2 (09:00→21:00)
[2017-05-31] MEDS: FERROUS SULFATE 325 MG TABLET.DR PO SCH ×3 (09:00→21:00)
[2017-05-31] MEDS: VANCOMYCIN 750MG + NS 250 ML IV SCH ×4 (10:08→20:56)
[2017-05-31] MEDS: AMINOCAPROIC ACID 500 MG TABLET PO SCH ×3 (10:10→13:54)
[2017-05-31] MEDS: AMICAR PO SCH ×2 (10:11→18:00)
[2017-05-31] MEDS: FAMOTIDINE/PF 20 MG/2 ML VIAL IV SCH ×2 (10:45→20:55)
[2017-05-31 11:39] VITALS: BP 116/50
[2017-05-31 15:56] VITALS: BP 102/59
[2017-05-31 19:00] VITALS: BP 107/60
[2017-05-31] MEDS: INSULIN GLARGINE 100 UNITS/ML 10 ML VIAL SQ SCH (20:57)
[2017-05-31 23:00] VITALS: BP 113/69
[2017-06-01] MEDS: CEFTAZIDIME PENTAHYDRATE 1 GM/VIAL IVP SCH ×3 (00:41→16:36)
[2017-06-01 03:00] VITALS: BP 107/70
[2017-06-01] MEDS: HYDROMORPHONE HCL 0.5 MG/0.5 ML ML IVP PRN (03:33)
[2017-06-01] MEDS: HONEY 1 APPL/ML TUBE TP SCH (05:22)
[2017-06-01] MEDS: INSULIN HUMULIN R 100 UNIT/ML 3ML SQ SCH ×4 (05:53→21:02)
[2017-06-01] MEDS: AMINOCAPROIC ACID 500 MG TABLET PO SCH ×4 (05:53→18:00)
[2017-06-01] MEDS: AMICAR PO SCH ×4 (05:53→18:00)
[2017-06-01 06:19] LABS: HEMATOCRIT 27.8 % (42-54)
[2017-06-01] MEDS: LEVOTHYROXINE 50 MCG TABLET PO SCH (06:42)
[2017-06-01 08:00] VITALS: BP 107/59
[2017-06-01] MEDS: MAGNESIUM OXIDE 400 MG TABLET PO SCH ×2 (09:00→21:00)
[2017-06-01] MEDS: PREDNISONE 20 MG TABLET PO SCH (09:00)
[2017-06-01] MEDS: FERROUS SULFATE 325 MG TABLET.DR PO SCH ×3 (09:00→21:00)
[2017-06-01] MEDS: TACROLIMUS 1 MG CAPSULE PO SCH ×2 (09:00→21:00)
[2017-06-01] MEDS: VANCOMYCIN 750MG + NS 250 ML IV SCH ×2 (09:17)
[2017-06-01] MEDS: FAMOTIDINE/PF 20 MG/2 ML VIAL IV SCH ×2 (09:19→20:51)
[2017-06-01 11:00] VITALS: BP 105/60
[2017-06-01] MEDS: MORPHINE SULFATE 2 MG/ML 1ML SYG IV PRN (15:31)
[2017-06-01 16:00] VITALS: BP 109/64
[2017-06-01] MEDS: SODIUM HYPOCHLORITE 0.25% [HALF STRENGTH] 473 ML TOPICAL SOLN TP SCH (16:34)
[2017-06-01 19:35] VITALS: BP 107/63
[2017-06-01] MEDS: INSULIN GLARGINE 100 UNITS/ML 10 ML VIAL SQ SCH (21:03)
[2017-06-01 23:40] VITALS: BP 104/62
[2017-06-02] MEDS: CEFTAZIDIME PENTAHYDRATE 1 GM/VIAL IVP SCH ×2 (01:24→09:16)
[2017-06-02] MEDS: VANCOMYCIN 750MG + NS 250 ML IV SCH ×4 (01:25→09:22)
[2017-06-02] MEDS: AMINOCAPROIC ACID 500 MG TABLET PO SCH ×3 (01:49→12:00)
[2017-06-02 03:45] VITALS: BP 105/64
[2017-06-02 04:44] LABS: HEMATOCRIT 24.8 % (42-54)
[2017-06-02] MEDS: AMICAR PO SCH ×3 (06:00→12:00)
[2017-06-02] MEDS: HONEY 1 APPL/ML TUBE TP SCH (06:45)
[2017-06-02] MEDS: LEVOTHYROXINE 50 MCG TABLET PO SCH (06:45)
[2017-06-02] MEDS: SODIUM HYPOCHLORITE 0.25% [HALF STRENGTH] 473 ML TOPICAL SOLN TP SCH ×2 (06:46→09:33)
[2017-06-02] MEDS: INSULIN HUMULIN R 100 UNIT/ML 3ML SQ SCH (07:30)
[2017-06-02 08:00] VITALS: BP 126/70
[2017-06-02] MEDS: TACROLIMUS 1 MG CAPSULE PO SCH (09:00)
[2017-06-02] MEDS: FERROUS SULFATE 325 MG TABLET.DR PO SCH (09:00)
[2017-06-02] MEDS: PREDNISONE 20 MG TABLET PO SCH (09:00)
[2017-06-02] MEDS: MAGNESIUM OXIDE 400 MG TABLET PO SCH (09:00)
[2017-06-02] MEDS: FAMOTIDINE/PF 20 MG/2 ML VIAL IV SCH (09:16)
[2017-06-02] MEDS ORDERED: TRAM50TA2 PO (10:25)
[2017-06-02] MEDS ORDERED: METF500T6 PO (10:25)
[2017-06-02] MEDS ORDERED: HEPARIN SODIUM/PF 100UNIT/ML 5ML SYRINGE IV SCH (10:45)
[2017-06-02 11:00] VITALS: BP 104/63
== END 2017-06-02 13:42 | disposition home or self-care (01) | DRG 663 ==
LOC: EDH 15:30 → EDHIP 15:31 → OBSVTOIN 15:31 → 3BH 05-27 01:08
PROVIDERS: ADMIT Family Medicine; ATTEND Family Medicine
PROC: 30233N1 Transfusion of Nonautologous Red Blood Cells into Peripheral Vein, Percutaneous Approach (ICD-10-PCS; principal; 2017-05-26)
DX: D64.9 Anemia, unspecified (principal); E11.22 Type 2 diabetes mellitus with diabetic chronic kidney disease; E46 Unspecified protein-calorie malnutrition; G82.20 Paraplegia, unspecified; E11.65 Type 2 diabetes mellitus with hyperglycemia; D04.72 Carcinoma in situ of skin of left lower limb, including hip; Z94.0 Kidney transplant status; L98.416 Non-pressure chronic ulcer of buttock with bone involvement without evidence of necrosis; Z16.24 Resistance to multiple antibiotics; Z99.2 Dependence on renal dialysis; N31.9 Neuromuscular dysfunction of bladder, unspecified; Z79.899 Other long term (current) drug therapy; I12.9 Hypertensive chronic kidney disease with stage 1 through stage 4 chronic kidney disease, or unspecified chronic kidney disease; N18.9 Chronic kidney disease, unspecified; Z74.01 Bed confinement status; Z68.1 Body mass index [BMI] 19.9 or less, adult; L97.129 Non-pressure chronic ulcer of left thigh with unspecified severity; L97.119 Non-pressure chronic ulcer of right thigh with unspecified severity; Z28.21 Immunization not carried out because of patient refusal
CPT/HCPCS: 36415; 36430; 80048; 80053; 80197; 80202; 81001; 82948; 83036; 83735; 84443; 85025; 85027; 86850; 86900; 86901; 86922; 87088; 87186; A4218; A4344; J0692; J0713; J1170; J1642; J1756; J1815; J2185; J3370; J3490; J7030; J7070; J7507; P9016

== ENCOUNTER 2017-06-16 16:09 | Observation (INO) | payer MEDICAID ==
[~2017-06-16] VITALS: Ht 198.1 cm; Wt 72.5 kg
[~2017-06-16 16:09] MED LIST changes: +TRAM50TA2 PO
[2017-06-16 17:49] LABS: BASOPHILS % (AUTO) 0.2 % (0.0-5.0); EOSINOPHILS % (AUTO) 0.1 % (0.0-8.0); HEMATOCRIT 25.2 % (42-54); LYMPHOCYTES % (AUTO) 1.6 % (21.0-51.0); MEAN CORPUSCULAR HEMOGLOBIN 27.9 pg (27.0-33.0); MEAN CORPUSCULAR HGB CONC 31.6 g/dL (32.0-36.0); MEAN CORPUSCULAR VOLUME 88.2 fL (79-99); MONOCYTES % (AUTO) 3.4 % (3.0-13.0); NEUTROPHILS % (AUTO) 94.7 % (40.0-77.0); PLATELET COUNT (AUTO) 215 K/uL (130-400); RED BLOOD CELL COUNT(AUTO) 2.86 MIL/uL (4.50-6.20); RED CELL DISTRIBUTION WIDTH 18.4 % (11.0-15.5); WHITE BLOOD COUNT (AUTO) 9.2 K/uL (4.8-10.8)
[2017-06-16 18:07] LABS: APPEARANCE,URINE Turbid (CLEAR); BILIRUBIN,URINE Negative (NEGATIVE); COLOR,URINE Yellow (YELLOW); GLUCOSE, URINE (UA) Negative (NEGATIVE); KETONES,URINE Negative (NEGATIVE); LEUKOCYTE ESTERASE ,URINE Large (NEGATIVE); NITRATE,URINE Negative (NEGATIVE); OCCULT BLOOD,URINE Moderate (NEGATIVE); PH,URINE >=9.0 (5.0-8.0); PROTEIN,URINE 300 (NEGATIVE)
[2017-06-16 18:09] LABS: CREATININE 1.2 mg/dL (0.5-1.5); POTASSIUM 5.3 mmol/L (3.5-5.1)
[2017-06-16 18:14] LABS: ALBUMIN 1.4 g/dL (3.5-5.0); BILIRUBIN,TOTAL 0.3 mg/dL (0.2-1.0); TOTAL PROTEIN, SERUM 6.1 g/dL (6.0-8.3)
[2017-06-16 18:26] LABS: BACTERIA,URINE Many /HPF (None Seen); MUCUS,URINE Many LPF (None Seen); RBC,URINE None Seen /HPF (0-1); WBC,URINE 51-100 /HPF (0-1)
[2017-06-16] MEDS ORDERED: MEROPENEM 500 MG VIAL ONE (20:28)
[2017-06-16] MEDS ORDERED: MORPHINE SULFATE 2 MG/ML 1ML SYG ONE (20:28)
[2017-06-17] MEDS ORDERED: MORPHINE SULFATE 2 MG/ML 1ML SYG ONE (01:46)
[2017-06-17 03:53] VITALS: BP 103/63
[2017-06-17] MEDS ORDERED: POTASSIUM CHLORIDE 20MEQ/100ML 100 ML IV PRN (05:00)
[2017-06-17] MEDS ORDERED: GLUCAGON 1MG KIT 1 MG ML IM PRN (05:00)
[2017-06-17] MEDS ORDERED: POTASSIUM CHLORIDE 20 MEQ ERTAB PO PRN (05:00)
[2017-06-17] MEDS ORDERED: MORPHINE SULFATE 2 MG/ML 1ML SYG IV PRN (05:00)
[2017-06-17] MEDS ORDERED: POTASSIUM CHLORIDE 10% ELIXIR 20 MEQ/15 ML UDCUP PO PRN (05:00)
[2017-06-17] MEDS ORDERED: DEXTROSE 50%-WATER 50 ML DISP.SYRIN IV PRN (05:00)
[2017-06-17] MEDS ORDERED: SODIUM CHLORIDE 0.9% 1000ML 1,000 ML IV SCH (05:00)
[2017-06-17] MEDS ORDERED: LIDOCAINE HCL-MPF 1% 2ML VIAL IVP PRN (05:00)
[2017-06-17] MEDS ORDERED: ACETAMINOPHEN EXTRA STRENGTH 500 MG TABLET PO PRN (05:15)
[2017-06-17] MEDS ORDERED: TRAMADOL HCL 50 MG TABLET PO PRN (05:15)
[2017-06-17] MEDS ORDERED: HYDROCODONE/ACETAMINOPHEN 7.5/325 MG TAB PO PRN (05:15)
[2017-06-17] MEDS ORDERED: MEROPENEM 500MG+NS 50ML 50 ML IV SCH (06:00)
[2017-06-17] MEDS ORDERED: MEROPENEM 500 MG VIAL IVP SCH (06:00)
[2017-06-17] MEDS: INSULIN HUMULIN R 100 UNIT/ML 3ML SQ SCH ×4 (06:24→21:46)
[2017-06-17 06:37] LABS: HEMATOCRIT 24.4 % (42-54); MEAN CORPUSCULAR HEMOGLOBIN 29.5 pg (27.0-33.0); MEAN CORPUSCULAR HGB CONC 33.9 g/dL (32.0-36.0); MEAN CORPUSCULAR VOLUME 87.2 fL (79-99); PLATELET COUNT (AUTO) 338 K/uL (130-400); RED CELL DISTRIBUTION WIDTH 18.9 % (11.0-15.5); WHITE BLOOD COUNT (AUTO) 13.6 K/uL (4.8-10.8)
[2017-06-17 06:50] LABS: ALBUMIN 1.5 g/dL (3.5-5.0); BILIRUBIN,TOTAL 0.4 mg/dL (0.2-1.0); CREATININE 1.1 mg/dL (0.5-1.5); POTASSIUM 5.1 mmol/L (3.5-5.1); TOTAL PROTEIN, SERUM 6.1 g/dL (6.0-8.3)
[2017-06-17 08:04] VITALS: BP 93/54
[2017-06-17] MEDS: FAMOTIDINE/PF 20 MG/2 ML VIAL IV SCH (08:49)
[2017-06-17] MEDS: MAGNESIUM OXIDE 400 MG TABLET PO SCH ×2 (08:51→21:00)
[2017-06-17] MEDS: METFORMIN HCL 500 MG TABLET PO SCH ×2 (08:51→21:00)
[2017-06-17] MEDS: FERROUS SULFATE 325 MG TABLET.DR PO SCH ×3 (08:51→21:00)
[2017-06-17] MEDS: PREDNISONE 20 MG TABLET PO SCH (08:51)
[2017-06-17] MEDS: TACROLIMUS 1 MG CAPSULE PO SCH (08:52)
[2017-06-17] MEDS: LEVOTHYROXINE 50 MCG TABLET PO SCH (08:52)
[2017-06-17 11:52] VITALS: BP 114/51
[2017-06-17] MEDS ORDERED: SODIUM HYPOCHLORITE 0.25% [HALF STRENGTH] 473 ML TOPICAL SOLN TP SCH (16:15)
[2017-06-17 17:17] VITALS: BP 103/66
[2017-06-17 19:10] VITALS: BP 90/59
[2017-06-17] MEDS ORDERED: TACROLIMUS 1 MG CAPSULE PO SCH (21:00)
[2017-06-17 23:35] VITALS: BP 94/61
[2017-06-18 03:40] VITALS: BP 92/60
[2017-06-18 06:01] LABS: HEMATOCRIT 26.6 % (42-54); MEAN CORPUSCULAR HGB CONC 31.9 g/dL (32.0-36.0); MEAN CORPUSCULAR VOLUME 87.9 fL (79-99); PLATELET COUNT (AUTO) 390 K/uL (130-400); RED BLOOD CELL COUNT(AUTO) 3.02 MIL/uL (4.50-6.20); RED CELL DISTRIBUTION WIDTH 18.6 % (11.0-15.5); WHITE BLOOD COUNT (AUTO) 11.6 K/uL (4.8-10.8)
[2017-06-18 06:14] LABS: CREATININE 1.4 mg/dL (0.5-1.5); POTASSIUM 4.7 mmol/L (3.5-5.1)
[2017-06-18] MEDS ORDERED: DEXTROSE 50%-WATER 50 ML DISP.SYRIN IV PRN (06:30)
[2017-06-18] MEDS ORDERED: ONDANSETRON HCL 4 MG/2 ML VIAL IVP PRN ×2 (06:30→06:45)
[2017-06-18] MEDS ORDERED: NITROGLYCERIN 0.4 MG SL TAB SL PRN ×2 (06:30→06:45)
[2017-06-18] MEDS ORDERED: DiphenhydrAMINE HCL 50 MG/ML VIAL IVP PRN ×2 (06:30→06:45)
[2017-06-18] MEDS ORDERED: MAG HYDROX/AL HYDROX/SIMETH ES 30 ML SUSP UDCUP PO PRN ×2 (06:30→06:45)
[2017-06-18] MEDS ORDERED: GLUCAGON 1MG KIT 1 MG ML IM PRN (06:30)
[2017-06-18] MEDS ORDERED: GUAIFENESIN SUGAR-FREE 100 MG/5 ML UDCUP PO PRN ×2 (06:30→06:45)
[2017-06-18] MEDS ORDERED: ZOLPIDEM TARTRATE 5 MG TAB PO PRN ×2 (06:30→06:45)
[2017-06-18] MEDS ORDERED: CLONIDINE HCL 0.1 MG TABLET PO PRN ×2 (06:30→06:45)
[2017-06-18] MEDS ORDERED: LIDOCAINE HCL-MPF 1% 2ML VIAL IJ PRN (06:30)
[2017-06-18] MEDS ORDERED: POTASSIUM CHLORIDE 20MEQ/100ML 100 ML IV PRN (06:30)
[2017-06-18] MEDS ORDERED: POTASSIUM CHLORIDE 20 MEQ ERTAB PO PRN (06:30)
[2017-06-18] MEDS ORDERED: ACETAMINOPHEN 325 MG TAB PO PRN ×4 (06:30→06:45)
[2017-06-18] MEDS ORDERED: LACTULOSE 20 GM/30 ML UDCUP PO PRN ×2 (06:30→06:45)
[2017-06-18] MEDS ORDERED: DIPHENHYDRAMINE HCL 25 MG CAPSULE PO PRN ×2 (06:30→06:45)
[2017-06-18] MEDS ORDERED: GUAIFENESIN-DM 200/20 MG 10 ML PO PRN ×2 (06:30→06:45)
[2017-06-18] MEDS ORDERED: POTASSIUM CHLORIDE 10% ELIXIR 20 MEQ/15 ML UDCUP PO PRN (06:30)
[2017-06-18] MEDS ORDERED: SODIUM CHLORIDE 0.9% 10 ML VIAL IVP SCH (06:30)
[2017-06-18] MEDS: INSULIN HUMULIN R 100 UNIT/ML 3ML SQ SCH ×2 (06:46→12:36)
[2017-06-18] MEDS ORDERED: INSULIN R PO SSI SQ SCH (07:30)
[2017-06-18 08:00] VITALS: BP 93/55
[2017-06-18] MEDS: LEVOTHYROXINE 50 MCG TABLET PO SCH (09:00)
[2017-06-18] MEDS: PREDNISONE 20 MG TABLET PO SCH (09:00)
[2017-06-18] MEDS: TACROLIMUS 1 MG CAPSULE PO SCH (09:00)
[2017-06-18] MEDS ORDERED: FAMOTIDINE 20MG TAB 20 MG TAB PO SCH (09:00)
[2017-06-18] MEDS: MAGNESIUM OXIDE 400 MG TABLET PO SCH (09:00)
[2017-06-18] MEDS: FERROUS SULFATE 325 MG TABLET.DR PO SCH ×2 (09:00→13:12)
[2017-06-18] MEDS: METFORMIN HCL 500 MG TABLET PO SCH (09:00)
[2017-06-18] MEDS: FAMOTIDINE/PF 20 MG/2 ML VIAL IV SCH (10:05)
[2017-06-18 12:00] VITALS: BP 108/67
[2017-06-18] MEDS ORDERED: INSULIN R NPO SS1 SQ SCH (12:00)
[2017-06-18] MEDS ORDERED: HEPARIN SODIUM/PF 100UNIT/ML 5ML SYRINGE IV SCH (13:15)
[2017-06-18] MEDS ORDERED: SODIUM CHLORIDE 0.9% 500ML 500 ML IV ONE (14:38)
== END 2017-06-18 16:40 | disposition home or self-care (01) ==
LOC: EDH 16:09 → EDHIP 16:10 → 4CH 06-17 02:56
PROVIDERS: ADMIT Family Medicine; ATTEND Family Medicine
DX: N31.9 Neuromuscular dysfunction of bladder, unspecified (principal); N39.0 Urinary tract infection, site not specified; R33.8 Other retention of urine; L89.309 Pressure ulcer of unspecified buttock, unspecified stage; L89.159 Pressure ulcer of sacral region, unspecified stage; G82.20 Paraplegia, unspecified; S81.802S Unspecified open wound, left lower leg, sequela; S81.801S Unspecified open wound, right lower leg, sequela; E11.65 Type 2 diabetes mellitus with hyperglycemia; E11.22 Type 2 diabetes mellitus with diabetic chronic kidney disease; I12.0 Hypertensive chronic kidney disease with stage 5 chronic kidney disease or end stage renal disease; N18.6 End stage renal disease; G89.29 Other chronic pain; D64.9 Anemia, unspecified; W34.00XS Accidental discharge from unspecified firearms or gun, sequela; Z85.89 Personal history of malignant neoplasm of other organs and systems; Z87.440 Personal history of urinary (tract) infections; Z94.0 Kidney transplant status; Z74.01 Bed confinement status; Z16.24 Resistance to multiple antibiotics
CPT/HCPCS: 36415 ×3; 80048; 80053 ×2; 81001; 82948 ×8; 85025; 85027 ×2; 87088; 87186; 96361; 96372 ×2; 96374; 96375 ×2; 96376; 99285; A4218; G0378 ×48; J1642; J1815 ×3; J2185 ×2; J3490 ×2; J7030; J7040; J7507

== ENCOUNTER 2017-08-17 11:29 | Inpatient (IN) | payer MEDICAID ==
[~2017-08-17] VITALS: Ht 182.9 cm; Wt 66.2 kg
[2017-08-17] MEDS ORDERED: ASPIRIN 325 MG TABLET ONE (11:51)
[2017-08-17 12:45] LABS: BASOPHILS % (AUTO) 0.2 % (0.0-5.0); EOSINOPHILS % (AUTO) 0.6 % (0.0-8.0); HEMATOCRIT 22.1 % (42-54); LYMPHOCYTES % (AUTO) 3.2 % (21.0-51.0); MEAN CORPUSCULAR HEMOGLOBIN 28.7 pg (27.0-33.0); MEAN CORPUSCULAR HGB CONC 32.7 g/dL (32.0-36.0); MEAN CORPUSCULAR VOLUME 87.9 fL (79-99); MONOCYTES % (AUTO) 3.4 % (3.0-13.0); NEUTROPHILS % (AUTO) 92.6 % (40.0-77.0); PLATELET COUNT (AUTO) 154 K/uL (130-400); RED BLOOD CELL COUNT(AUTO) 2.52 MIL/uL (4.50-6.20); RED CELL DISTRIBUTION WIDTH 18.3 % (11.0-15.5); WHITE BLOOD COUNT (AUTO) 8.6 K/uL (4.8-10.8)
[2017-08-17 12:49] LABS: INR 1.1 (0.85-1.15); PARTIAL THROMBOPLASTIN TIME 25.6 SEC (26.3-35.5); PROTHROMBIN TIME 11.5 SEC (9.6-11.6)
[2017-08-17 12:57] LABS: APPEARANCE,URINE TURBID (CLEAR); BILIRUBIN,URINE NEGATIVE (NEGATIVE); COLOR,URINE YELLOW (YELLOW); GLUCOSE, URINE (UA) NEGATIVE (NEGATIVE); KETONES,URINE NEGATIVE (NEGATIVE); LEUKOCYTE ESTERASE ,URINE MODERATE (NEGATIVE); NITRATE,URINE POSITIVE (NEGATIVE); OCCULT BLOOD,URINE LARGE (NEGATIVE); PROTEIN,URINE 100 (NEGATIVE); UROBILINOGEN,URINE 0.2 mg/dL (0.2-1.0)
[2017-08-17 13:00] LABS: CARBON DIOXIDE 25 mmol/L (21-32); CHLORIDE 105 mmol/L (101-111); CREATININE 0.8 mg/dL (0.5-1.5); GLOMERULAR FILTR. RATE CALC 105 mL/min (>60); GLUCOSE,RANDOM 300 mg/dL (70-105); POTASSIUM 3.9 mmol/L (3.5-5.1); SODIUM SERUM 139 mmol/L (136-145); UREA NITROGEN, BLOOD 24 mg/dL (7-18)
[2017-08-17 13:01] LABS: WBC,URINE TNTC /HPF (0-1)
[2017-08-17 13:02] LABS: BACTERIA,URINE Few /HPF (None Seen); YEAST,URINE BUDDING Few /HPF (None Seen)
[2017-08-17 13:03] LABS: MUCUS,URINE Few LPF (None Seen); SQUAMOUS EPITHELIAL CELL,UR Moderate /HPF (0-2)
[2017-08-17 13:05] LABS: ALANINE AMINOTRANSFERASE 11 U/L (12-78); BILIRUBIN,TOTAL 0.3 mg/dL (0.2-1.0); TOTAL PROTEIN, SERUM 4.4 g/dL (6.0-8.3)
[2017-08-17 13:11] LABS: B-TYPE NATRIURETIC PEPTIDE 43 pg/mL (0-100)
[2017-08-17 13:21] LABS: ALBUMIN 1.4 g/dL (3.5-5.0); ASPARTATE AMINOTRANSFERASE 11 U/L (10-37)
[2017-08-17 13:23] LABS: CREATINE KINASE, TOTAL < 7 U/L (21-232)
[2017-08-17] MEDS ORDERED: MEROPENEM 1 GM VIAL ONE (14:48)
[2017-08-17] MEDS ORDERED: SODIUM CHLORIDE 0.9% 1000ML 1,000 ML IV ONE (15:17)
[2017-08-17] MEDS ORDERED: FENTANYL CITRATE PF 50 MCG/1 ML 2ML VIAL ONE (15:18)
[2017-08-17] MEDS ORDERED: SODIUM CHLORIDE 0.9% 10 ML VIAL IVP PRN (16:30)
[2017-08-17] MEDS ORDERED: ONDANSETRON HCL MDV 20ML 2 MG/ML VIAL IVP PRN (16:30)
[2017-08-17] MEDS ORDERED: MORPHINE SULFATE 4 MG/1ML SYG IVP PRN (16:30)
[2017-08-17] MEDS ORDERED: CLONIDINE HCL 0.1 MG TABLET PO PRN (16:30)
[2017-08-17] MEDS ORDERED: LACTULOSE 20 GM/30 ML UDCUP PO PRN (16:30)
[2017-08-17] MEDS ORDERED: ACETAMINOPHEN 325 MG TAB PO PRN ×2 (16:30)
[2017-08-17] MEDS ORDERED: MORPHINE SULFATE 4 MG/1ML SYG ONE (22:00)
[2017-08-17 22:10] VITALS: BP 98/58
[2017-08-17] MEDS ORDERED: TACR1CAP18 PO (23:33)
[2017-08-18] MEDS: MEROPENEM 500 MG VIAL IVP SCH ×4 (00:52→23:50)
[2017-08-18 04:00] VITALS: BP 99/51
[2017-08-18 04:32] LABS: HEMATOCRIT 24.3 % (42-54); MEAN CORPUSCULAR HEMOGLOBIN 28.4 pg (27.0-33.0); MEAN CORPUSCULAR HGB CONC 32.1 g/dL (32.0-36.0); MEAN CORPUSCULAR VOLUME 88.5 fL (79-99); PLATELET COUNT (AUTO) 232 K/uL (130-400); RED BLOOD CELL COUNT(AUTO) 2.74 MIL/uL (4.50-6.20); RED CELL DISTRIBUTION WIDTH 18.2 % (11.0-15.5); WHITE BLOOD COUNT (AUTO) 10.2 K/uL (4.8-10.8)
[2017-08-18 04:46] LABS: HEMOGLOBIN A1C 6.3 % (4.0-6.0)
[2017-08-18 05:25] LABS: CREATININE 0.9 mg/dL (0.5-1.5); POTASSIUM 4.2 mmol/L (3.5-5.1); THYROID STIMULATING HORMONE 15.21 uIU/mL (0.36-3.74)
[2017-08-18 08:28] VITALS: BP 89/54
[2017-08-18] MEDS: FAMOTIDINE 20MG TAB 20 MG TAB PO SCH ×2 (09:00→21:21)
[2017-08-18] MEDS ORDERED: TRAMADOL HCL 50 MG TABLET PO PRN (09:15)
[2017-08-18 11:57] VITALS: BP 84/56
[2017-08-18] MEDS: FERROUS SULFATE 325 MG TABLET.DR PO SCH ×3 (14:00→21:00)
[2017-08-18] MEDS: HYDROMORPHONE 1 MG/1 ML AMP IVP PRN ×2 (14:18→21:19)
[2017-08-18] MEDS: METFORMIN HCL 500 MG TABLET PO SCH (16:09)
[2017-08-18 16:25] VITALS: BP 100/58
[2017-08-18 19:57] VITALS: BP 94/61
[2017-08-18] MEDS: INSULIN HUMULIN R 100 UNIT/ML 3ML SQ SCH (21:00)
[2017-08-18] MEDS: TACROLIMUS 1 MG CAPSULE PO SCH (21:00)
[2017-08-18] MEDS: MAGNESIUM OXIDE 400 MG TABLET PO SCH (21:00)
[2017-08-19] VITALS: BP 103/63
[2017-08-19 04:00] VITALS: BP 105/59
[2017-08-19] MEDS: INSULIN HUMULIN R 100 UNIT/ML 3ML SQ SCH ×4 (05:16→21:35)
[2017-08-19] MEDS: MEROPENEM 500 MG VIAL IVP SCH ×3 (06:00→23:49)
[2017-08-19] MEDS: LEVOTHYROXINE 50 MCG TABLET PO SCH (06:30)
[2017-08-19] MEDS: METFORMIN HCL 500 MG TABLET PO SCH ×2 (08:00→17:51)
[2017-08-19] MEDS: TACROLIMUS 1 MG CAPSULE PO SCH ×2 (08:00→21:00)
[2017-08-19 08:13] VITALS: BP 111/66
[2017-08-19] MEDS: PREDNISONE 20 MG TABLET PO SCH (09:00)
[2017-08-19] MEDS: FERROUS SULFATE 325 MG TABLET.DR PO SCH ×3 (09:00→21:00)
[2017-08-19] MEDS: MAGNESIUM OXIDE 400 MG TABLET PO SCH ×2 (09:00→21:00)
[2017-08-19] MEDS: FAMOTIDINE 20MG TAB 20 MG TAB PO SCH ×2 (09:03→21:00)
[2017-08-19] MEDS: HYDROMORPHONE 1 MG/1 ML AMP IVP PRN (11:39)
[2017-08-19 11:57] VITALS: BP 107/56
[2017-08-19] MEDS ORDERED: BISMUTH SUBSALICYLATE 262 MG/15 ML ML PO PRN (14:45)
[2017-08-19 17:05] VITALS: BP 100/59
[2017-08-19] MEDS ORDERED: HYDROMORPHONE HCL 0.5 MG/0.5 ML ML ONE ×2 (17:48→23:55)
[2017-08-19 20:00] VITALS: BP 93/51
[2017-08-19] MEDS ORDERED: FUROSEMIDE 20 MG TABLET PO SCH (21:00)
[2017-08-20] VITALS: BP 103/61
[2017-08-20 04:00] VITALS: BP 98/63
[2017-08-20 04:35] LABS: HEMATOCRIT 24.1 % (42-54); MEAN CORPUSCULAR HGB CONC 34.2 g/dL (32.0-36.0); MEAN CORPUSCULAR VOLUME 87.6 fL (79-99); PLATELET COUNT (AUTO) 238 K/uL (130-400); RED BLOOD CELL COUNT(AUTO) 2.75 MIL/uL (4.50-6.20); RED CELL DISTRIBUTION WIDTH 18.4 % (11.0-15.5); WHITE BLOOD COUNT (AUTO) 10.1 K/uL (4.8-10.8)
[2017-08-20 04:54] LABS: POTASSIUM 4.6 mmol/L (3.5-5.1)
[2017-08-20] MEDS: INSULIN HUMULIN R 100 UNIT/ML 3ML SQ SCH ×2 (05:41→13:00)
[2017-08-20] MEDS ORDERED: HYDROMORPHONE HCL 0.5 MG/0.5 ML ML ONE ×3 (05:47→16:02)
[2017-08-20] MEDS: LEVOTHYROXINE 50 MCG TABLET PO SCH (05:49)
[2017-08-20] MEDS: MEROPENEM 500 MG VIAL IVP SCH (06:03)
[2017-08-20] MEDS: METFORMIN HCL 500 MG TABLET PO SCH (08:00)
[2017-08-20] MEDS: TACROLIMUS 1 MG CAPSULE PO SCH (08:00)
[2017-08-20 08:07] VITALS: BP 100/61
[2017-08-20] MEDS: FERROUS SULFATE 325 MG TABLET.DR PO SCH ×2 (09:00→14:00)
[2017-08-20] MEDS: MAGNESIUM OXIDE 400 MG TABLET PO SCH (09:00)
[2017-08-20] MEDS: PREDNISONE 20 MG TABLET PO SCH (09:00)
[2017-08-20] MEDS ORDERED: FUROSEMIDE 10 MG/ML 2ML VIAL IVP SCH (09:00)
[2017-08-20] MEDS ORDERED: HYDROMORPHONE 1 MG/1 ML AMP IVP PRN (09:15)
[2017-08-20] MEDS: FAMOTIDINE 20MG TAB 20 MG TAB PO SCH (10:29)
[2017-08-20] MEDS: HYDROMORPHONE HCL 0.5 MG/0.5 ML ML ONE ×2 (10:29→10:45)
[2017-08-20 12:30] VITALS: BP 110/73
[2017-08-20] MEDS ORDERED: HEPARIN SODIUM/PF 100UNIT/ML 5ML SYRINGE IV SCH (18:30)
[2017-08-20 18:53] VITALS: BP 110/70
[2017-08-20] MEDS ORDERED: FUROSEMIDE 20 MG TABLET PO SCH (21:00)
[2017-10-08] MEDS ORDERED: HYDR8TAB43 PO (03:05)
[2017-10-08] MEDS ORDERED: FURO20TA4 PO (03:05)
[2017-10-08] MEDS ORDERED: PRED20TA3 PO (03:05)
== END 2017-08-20 19:40 | disposition home or self-care (01) | DRG 463 ==
LOC: EDH 11:29 → EDHIP 11:30 → OBSVTOIN 11:30 → 3CH 20:43
PROVIDERS: ADMIT Family Medicine; ATTEND Family Medicine
DX: N39.0 Urinary tract infection, site not specified (principal); E11.22 Type 2 diabetes mellitus with diabetic chronic kidney disease; G82.20 Paraplegia, unspecified; E11.65 Type 2 diabetes mellitus with hyperglycemia; E44.1 Mild protein-calorie malnutrition; B95.8 Unspecified staphylococcus as the cause of diseases classified elsewhere; N18.6 End stage renal disease; D64.9 Anemia, unspecified; N31.9 Neuromuscular dysfunction of bladder, unspecified; Z94.0 Kidney transplant status; Z74.01 Bed confinement status; E03.9 Hypothyroidism, unspecified; G89.29 Other chronic pain; I12.0 Hypertensive chronic kidney disease with stage 5 chronic kidney disease or end stage renal disease; K27.9 Peptic ulcer, site unspecified, unspecified as acute or chronic, without hemorrhage or perforation; Z16.24 Resistance to multiple antibiotics; Z86.718 Personal history of other venous thrombosis and embolism; Z87.440 Personal history of urinary (tract) infections; L98.429 Non-pressure chronic ulcer of back with unspecified severity; Z68.1 Body mass index [BMI] 19.9 or less, adult; Z28.21 Immunization not carried out because of patient refusal; R06.02 Shortness of breath
CPT/HCPCS: 36415; 71045; 78580; 80048; 80053; 81001; 82550; 82948; 83036; 83880; 84443; 84484; 85025; 85027; 85378; 85610; 85730; 86850; 86900; 86901; 86922; 87040; 87088; 87186; 93005; A4218; A4338; A4344; A9540; J1170; J1642; J1815; J1940; J2185; J2270; J3010; J7030; J7507

== ENCOUNTER 2017-08-26 11:18 | Inpatient (IN) | payer MEDICAID ==
[~2017-08-26] VITALS: Ht 198.1 cm; Wt 78.1 kg
[~2017-08-26 11:18] MED LIST changes: +TACR1CAP18 PO
[2017-08-26 12:08] LABS: BASOPHILS % (AUTO) 0.7 % (0.0-5.0); EOSINOPHILS % (AUTO) 0.6 % (0.0-8.0); LYMPHOCYTES % (AUTO) 2.9 % (21.0-51.0); MEAN CORPUSCULAR HGB CONC 32.4 g/dL (32.0-36.0); MEAN CORPUSCULAR VOLUME 89.6 fL (79-99); MONOCYTES % (AUTO) 4.4 % (3.0-13.0); NEUTROPHILS % (AUTO) 91.4 % (40.0-77.0); PLATELET COUNT (AUTO) 206 K/uL (130-400); RED CELL DISTRIBUTION WIDTH 19.1 % (11.0-15.5); WHITE BLOOD COUNT (AUTO) 8.9 K/uL (4.8-10.8)
[2017-08-26 12:28] LABS: ALBUMIN 1.4 g/dL (3.5-5.0); BILIRUBIN,TOTAL 0.3 mg/dL (0.2-1.0); TOTAL PROTEIN, SERUM 5.1 g/dL (6.0-8.3)
[2017-08-26 12:33] LABS: HEMATOCRIT 20.6 % (42-54)
[2017-08-26 12:45] LABS: APPEARANCE,URINE Turbid (CLEAR); BILIRUBIN,URINE Negative (NEGATIVE); COLOR,URINE Yellow (YELLOW); GLUCOSE, URINE (UA) Negative (NEGATIVE); KETONES,URINE Negative (NEGATIVE); LEUKOCYTE ESTERASE ,URINE Large (NEGATIVE); NITRATE,URINE Negative (NEGATIVE); OCCULT BLOOD,URINE Moderate (NEGATIVE); PH,URINE 5.5 (5.0-8.0); PROTEIN,URINE POS 1+ (NEGATIVE); UROBILINOGEN,URINE 0.2 mg/dL (0.2-1.0)
[2017-08-26 13:13] LABS: BACTERIA,URINE Many /HPF (None Seen); RBC,URINE 51-100 /HPF (0-1); WBC,URINE TNTC /HPF (0-1); YEAST,URINE BUDDING Many /HPF (None Seen)
[2017-08-26 13:14] LABS: SQUAMOUS EPITHELIAL CELL,UR 0-2 /HPF (0-2)
[2017-08-26] MEDS ORDERED: MORPHINE SULFATE 4 MG/1ML SYG ONE (17:13)
[2017-08-26 19:00] VITALS: BP 109/73
[2017-08-26] MEDS ORDERED: ONDANSETRON HCL MDV 20ML 2 MG/ML VIAL IVP PRN (20:15)
[2017-08-26] MEDS ORDERED: SODIUM CHLORIDE 0.9% 1000ML 1,000 ML IV SCH (20:15)
[2017-08-26] MEDS ORDERED: MORPHINE SULFATE 4 MG/1ML SYG IVP PRN (20:15)
[2017-08-26 23:00] VITALS: BP 113/67
[2017-08-27 03:00] VITALS: BP 106/64
[2017-08-27 05:22] LABS: ALBUMIN 1.6 g/dL (3.5-5.0); BILIRUBIN,TOTAL 0.7 mg/dL (0.2-1.0); TOTAL PROTEIN, SERUM 6.1 g/dL (6.0-8.3)
[2017-08-27] MEDS ORDERED: HYDRALAZINE HCL 20 MG/ML VIAL IV PRN (06:45)
[2017-08-27] MEDS ORDERED: ONDANSETRON HCL 4 MG/2 ML VIAL IV PRN (06:45)
[2017-08-27] MEDS ORDERED: MORPHINE SULFATE 2 MG/ML 1ML SYG IV PRN (06:45)
[2017-08-27] MEDS ORDERED: LACTULOSE 20 GM/30 ML UDCUP PO PRN (06:45)
[2017-08-27] MEDS ORDERED: COMPOUND IV MISC 1 EACH IVSOLN MISC PRN (06:45)
[2017-08-27] MEDS ORDERED: NITROGLYCERIN 0.4 MG SL TAB SL PRN (06:45)
[2017-08-27] MEDS ORDERED: ACETAMINOPHEN 325 MG TAB PO PRN ×2 (06:45)
[2017-08-27] MEDS ORDERED: GUAIFENESIN-DM 200/20 MG 10 ML PO PRN (06:45)
[2017-08-27] MEDS ORDERED: MORPHINE SULFATE 4 MG/1ML SYG IVP PRN (06:45)
[2017-08-27 07:35] VITALS: BP 108/67
[2017-08-27 07:38] LABS: BASOPHILS % (AUTO) 0.2 % (0.0-5.0); EOSINOPHILS % (AUTO) 0.9 % (0.0-8.0); HEMATOCRIT 29.4 % (42-54); LYMPHOCYTES % (AUTO) 3.7 % (21.0-51.0); MEAN CORPUSCULAR HEMOGLOBIN 27.7 pg (27.0-33.0); MEAN CORPUSCULAR HGB CONC 31.8 g/dL (32.0-36.0); MEAN CORPUSCULAR VOLUME 87.2 fL (79-99); MONOCYTES % (AUTO) 5.9 % (3.0-13.0); NEUTROPHILS % (AUTO) 89.3 % (40.0-77.0); NUCLEATED RED BLOOD CELLS 0.1 % (0.0-0.19); PLATELET COUNT (AUTO) 240 K/uL (130-400); RED BLOOD CELL COUNT(AUTO) 3.37 MIL/uL (4.50-6.20); RED CELL DISTRIBUTION WIDTH 20.4 % (11.0-15.5); WHITE BLOOD COUNT (AUTO) 10.9 K/uL (4.8-10.8)
[2017-08-27] MEDS ORDERED: HYDROMORPHONE 1 MG/1 ML AMP ONE ×2 (09:38→18:54)
[2017-08-27] MEDS: IRON SUCROSE COMPLEX 100 MG in SODIUM CHLORIDE 0.9% 50 ML IV SCH (09:45)
[2017-08-27 11:21] VITALS: BP 90/55
[2017-08-27] MEDS ORDERED: LIDOCAINE HCL-MPF 1% 2ML VIAL IVP PRN (11:45)
[2017-08-27] MEDS ORDERED: POTASSIUM CHLORIDE 20MEQ/100ML 100 ML IV PRN (11:45)
[2017-08-27] MEDS ORDERED: POTASSIUM CHLORIDE 20 MEQ ERTAB PO PRN (11:45)
[2017-08-27] MEDS ORDERED: POTASSIUM CHLORIDE 10% ELIXIR 20 MEQ/15 ML UDCUP PO PRN (11:45)
[2017-08-27] MEDS: INSULIN HUMULIN R 100 UNIT/ML 3ML SQ SCH ×2 (16:30→20:51)
[2017-08-27 16:55] VITALS: BP 101/64
[2017-08-27] MEDS: HYDROMORPHONE 4MG/ML 1ML VIAL IVP PRN (18:58)
[2017-08-27 19:00] VITALS: BP 113/61
[2017-08-27] MEDS ORDERED: SODIUM HYPOCHLORITE 0.5% [FULL STRENGTH] 473 ML TOPICAL SOLN TP PRN (20:00)
[2017-08-27] MEDS: MAGNESIUM OXIDE 400 MG TABLET PO SCH (20:51)
[2017-08-27] MEDS: TACROLIMUS 1 MG CAPSULE PO SCH (20:51)
[2017-08-27] MEDS: METFORMIN HCL 500 MG TABLET PO SCH (20:51)
[2017-08-27] MEDS: SODIUM HYPOCHLORITE 0.5% [FULL STRENGTH] 473 ML TOPICAL SOLN TP SCH (20:54)
[2017-08-27 23:00] VITALS: BP 104/63
[2017-08-28 03:00] VITALS: BP 120/90
[2017-08-28 04:20] LABS: HEMATOCRIT 25.6 % (42-54); MEAN CORPUSCULAR HEMOGLOBIN 28.8 pg (27.0-33.0); MEAN CORPUSCULAR HGB CONC 33.5 g/dL (32.0-36.0); MEAN CORPUSCULAR VOLUME 85.9 fL (79-99); PLATELET COUNT (AUTO) 227 K/uL (130-400); RED BLOOD CELL COUNT(AUTO) 2.98 MIL/uL (4.50-6.20); RED CELL DISTRIBUTION WIDTH 19.6 % (11.0-15.5); WHITE BLOOD COUNT (AUTO) 8.5 K/uL (4.8-10.8)
[2017-08-28 04:31] LABS: CREATININE 0.9 mg/dL (0.5-1.5); POTASSIUM 5.1 mmol/L (3.5-5.1)
[2017-08-28] MEDS ORDERED: HYDROMORPHONE 1 MG/1 ML AMP ONE ×3 (04:31→17:28)
[2017-08-28] MEDS: HYDROMORPHONE 4MG/ML 1ML VIAL IVP PRN (04:32)
[2017-08-28] MEDS: INSULIN HUMULIN R 100 UNIT/ML 3ML SQ SCH ×4 (05:39→22:28)
[2017-08-28 07:00] VITALS: BP 110/67
[2017-08-28] MEDS: TACROLIMUS 1 MG CAPSULE PO SCH ×2 (08:00→21:00)
[2017-08-28] MEDS ORDERED: FUROSEMIDE 10 MG/ML 2ML VIAL IV SCH (08:00)
[2017-08-28] MEDS: METFORMIN HCL 500 MG TABLET PO SCH ×2 (09:00→21:00)
[2017-08-28] MEDS: LEVOTHYROXINE 50 MCG TABLET PO SCH (09:00)
[2017-08-28] MEDS: PREDNISONE 20 MG TABLET PO SCH (09:00)
[2017-08-28] MEDS: IRON SUCROSE COMPLEX 100 MG in SODIUM CHLORIDE 0.9% 50 ML IV SCH (09:00)
[2017-08-28] MEDS: MAGNESIUM OXIDE 400 MG TABLET PO SCH ×2 (09:00→21:00)
[2017-08-28] MEDS ORDERED: HYDROMORPHONE 4MG/ML 1ML VIAL IVP PRN (09:00)
[2017-08-28] MEDS: HYDROCODONE/ACETAMINOPHEN 7.5/325 MG TAB PO PRN (09:39)
[2017-08-28 11:00] VITALS: BP 101/65
[2017-08-28 12:43] LABS: % IRON SATURATION 17.2 % (30-44)
[2017-08-28 15:30] VITALS: BP 107/65
[2017-08-28 19:00] VITALS: BP 94/56
[2017-08-28] MEDS: SODIUM HYPOCHLORITE 0.5% [FULL STRENGTH] 473 ML TOPICAL SOLN TP SCH (21:00)
[2017-08-29] VITALS: BP 92/57
[2017-08-29] MEDS ORDERED: HYDROMORPHONE HCL 0.5 MG/0.5 ML ML ONE (00:23)
[2017-08-29 04:00] VITALS: BP 96/59
[2017-08-29] MEDS ORDERED: HYDROMORPHONE 1 MG/1 ML AMP ONE ×5 (04:35→22:12)
[2017-08-29 04:58] LABS: HEMATOCRIT 26.1 % (42-54); MEAN CORPUSCULAR HEMOGLOBIN 28.1 pg (27.0-33.0); MEAN CORPUSCULAR HGB CONC 32.4 g/dL (32.0-36.0); MEAN CORPUSCULAR VOLUME 86.8 fL (79-99); PLATELET COUNT (AUTO) 234 K/uL (130-400); RED BLOOD CELL COUNT(AUTO) 3.01 MIL/uL (4.50-6.20); RED CELL DISTRIBUTION WIDTH 19.3 % (11.0-15.5); WHITE BLOOD COUNT (AUTO) 9.6 K/uL (4.8-10.8)
[2017-08-29 05:09] LABS: CREATININE 1.1 mg/dL (0.5-1.5); POTASSIUM 4.9 mmol/L (3.5-5.1)
[2017-08-29 07:00] VITALS: BP 105/65
[2017-08-29] MEDS: INSULIN HUMULIN R 100 UNIT/ML 3ML SQ SCH ×4 (07:30→21:50)
[2017-08-29] MEDS: TACROLIMUS 1 MG CAPSULE PO SCH ×2 (08:00→21:00)
[2017-08-29] MEDS: METFORMIN HCL 500 MG TABLET PO SCH ×2 (09:00→21:00)
[2017-08-29] MEDS: LEVOTHYROXINE 50 MCG TABLET PO SCH (09:00)
[2017-08-29] MEDS: MAGNESIUM OXIDE 400 MG TABLET PO SCH ×2 (09:00→21:00)
[2017-08-29] MEDS: IRON SUCROSE COMPLEX 100 MG in SODIUM CHLORIDE 0.9% 50 ML IV SCH (09:59)
[2017-08-29 11:00] VITALS: BP 120/64
[2017-08-29 15:31] VITALS: BP 105/61
[2017-08-29] MEDS ORDERED: IOPAMIDOL-370 75 ML VIAL IV ONE (15:41)
[2017-08-29] MEDS: MORPHINE SULFATE 4 MG/1ML SYG IV PRN (16:29)
[2017-08-29] MEDS: PREDNISONE 20 MG TABLET PO SCH (18:10)
[2017-08-29 19:00] VITALS: BP 100/68
[2017-08-29] MEDS: SODIUM HYPOCHLORITE 0.5% [FULL STRENGTH] 473 ML TOPICAL SOLN TP SCH (21:00)
[2017-08-30] VITALS: BP 112/60
[2017-08-30] MEDS: MORPHINE SULFATE 4 MG/1ML SYG IV PRN ×3 (00:26→22:10)
[2017-08-30 04:00] VITALS: BP 95/55
[2017-08-30] MEDS ORDERED: HYDROMORPHONE 1 MG/1 ML AMP ONE ×4 (04:45→19:56)
[2017-08-30] MEDS: INSULIN HUMULIN R 100 UNIT/ML 3ML SQ SCH ×4 (06:15→22:06)
[2017-08-30 07:00] VITALS: BP 92/57
[2017-08-30] MEDS: TACROLIMUS 1 MG CAPSULE PO SCH ×2 (08:00→20:07)
[2017-08-30] MEDS: LEVOTHYROXINE 50 MCG TABLET PO SCH (09:00)
[2017-08-30] MEDS: SODIUM HYPOCHLORITE 0.5% [FULL STRENGTH] 473 ML TOPICAL SOLN TP SCH ×2 (09:00→21:00)
[2017-08-30] MEDS: MAGNESIUM OXIDE 400 MG TABLET PO SCH ×2 (09:00→22:01)
[2017-08-30] MEDS: METFORMIN HCL 500 MG TABLET PO SCH ×2 (09:00→20:06)
[2017-08-30] MEDS: PREDNISONE 20 MG TABLET PO SCH (09:00)
[2017-08-30] MEDS: IRON SUCROSE COMPLEX 100 MG in SODIUM CHLORIDE 0.9% 50 ML IV SCH (09:55)
[2017-08-30] MEDS: PANTOPRAZOLE SODIUM 40 MG TABLET.DR PO SCH (10:06)
[2017-08-30 11:00] VITALS: BP 103/57
[2017-08-30 15:34] VITALS: BP 114/69
[2017-08-30 19:00] VITALS: BP 92/54
[2017-08-31] VITALS (7 sets, daily range): BP systolic 93–119; BP diastolic 57–68
[2017-08-31] MEDS: HYDROMORPHONE 1 MG/1 ML AMP IVP PRN ×4 (01:00→20:14)
[2017-08-31 06:03] LABS: HEMATOCRIT 26.6 % (42-54); MEAN CORPUSCULAR HEMOGLOBIN 27.7 pg (27.0-33.0); MEAN CORPUSCULAR HGB CONC 31.5 g/dL (32.0-36.0); MEAN CORPUSCULAR VOLUME 87.8 fL (79-99); PLATELET COUNT (AUTO) 276 K/uL (130-400); RED BLOOD CELL COUNT(AUTO) 3.03 MIL/uL (4.50-6.20); RED CELL DISTRIBUTION WIDTH 19.2 % (11.0-15.5); WHITE BLOOD COUNT (AUTO) 12.6 K/uL (4.8-10.8)
[2017-08-31 06:13] LABS: CREATININE 0.9 mg/dL (0.5-1.5); POTASSIUM 4.5 mmol/L (3.5-5.1)
[2017-08-31] MEDS: SODIUM HYPOCHLORITE 0.25% [HALF STRENGTH] 473 ML TOPICAL SOLN TP SCH ×2 (06:50→12:26)
[2017-08-31] MEDS: PANTOPRAZOLE SODIUM 40 MG TABLET.DR PO SCH (07:24)
[2017-08-31] MEDS ORDERED: FUROSEMIDE 10 MG/ML 2ML VIAL IV SCH (07:30)
[2017-08-31] MEDS: INSULIN HUMULIN R 100 UNIT/ML 3ML SQ SCH ×4 (07:30→20:21)
[2017-08-31] MEDS: MORPHINE SULFATE 4 MG/1ML SYG IV PRN (07:43)
[2017-08-31] MEDS: HYDROCODONE/ACETAMINOPHEN 7.5/325 MG TAB PO PRN (07:58)
[2017-08-31] MEDS: TACROLIMUS 1 MG CAPSULE PO SCH ×2 (08:00→20:23)
[2017-08-31] MEDS: METFORMIN HCL 500 MG TABLET PO SCH ×2 (09:00→20:22)
[2017-08-31] MEDS: PREDNISONE 20 MG TABLET PO SCH (09:00)
[2017-08-31] MEDS: MAGNESIUM OXIDE 400 MG TABLET PO SCH ×2 (09:00→20:21)
[2017-08-31] MEDS: SODIUM HYPOCHLORITE 0.5% [FULL STRENGTH] 473 ML TOPICAL SOLN TP SCH ×2 (09:00→20:23)
[2017-08-31] MEDS: LEVOTHYROXINE 50 MCG TABLET PO SCH (09:00)
[2017-08-31] MEDS: IRON SUCROSE COMPLEX 100 MG in SODIUM CHLORIDE 0.9% 50 ML IV SCH (11:50)
[2017-08-31] MEDS: AMPICILLIN 2GM+NS 100ML 100 ML IV SCH ×2 (13:31→20:22)
[2017-09-01] MEDS: HYDROMORPHONE 1 MG/1 ML AMP IVP PRN ×4 (00:28→18:14)
[2017-09-01] MEDS: SODIUM HYPOCHLORITE 0.25% [HALF STRENGTH] 473 ML TOPICAL SOLN TP SCH ×2 (00:28→10:53)
[2017-09-01] MEDS: AMPICILLIN 2GM+NS 100ML 100 ML IV SCH ×4 (01:48→18:11)
[2017-09-01] MEDS: HYDROCODONE/ACETAMINOPHEN 7.5/325 MG TAB PO PRN (02:47)
[2017-09-01 03:30] VITALS: BP 113/70
[2017-09-01 04:50] LABS: HEMATOCRIT 21.3 % (42-54); MEAN CORPUSCULAR HEMOGLOBIN 29.4 pg (27.0-33.0); MEAN CORPUSCULAR VOLUME 86.5 fL (79-99); NUCLEATED RED BLOOD CELLS 0.1 % (0.0-0.19); PLATELET COUNT (AUTO) 167 K/uL (130-400); RED BLOOD CELL COUNT(AUTO) 2.46 MIL/uL (4.50-6.20); RED CELL DISTRIBUTION WIDTH 18.5 % (11.0-15.5); WHITE BLOOD COUNT (AUTO) 7.3 K/uL (4.8-10.8)
[2017-09-01 04:58] LABS: CREATININE 1.1 mg/dL (0.5-1.5); POTASSIUM 4.4 mmol/L (3.5-5.1)
[2017-09-01] MEDS: PANTOPRAZOLE SODIUM 40 MG TABLET.DR PO SCH (05:37)
[2017-09-01] MEDS: INSULIN HUMULIN R 100 UNIT/ML 3ML SQ SCH ×4 (05:38→20:00)
[2017-09-01 07:54] VITALS: BP 113/64
[2017-09-01] MEDS: TACROLIMUS 1 MG CAPSULE PO SCH ×2 (08:00→20:01)
[2017-09-01] MEDS: MAGNESIUM OXIDE 400 MG TABLET PO SCH ×2 (09:00→19:56)
[2017-09-01] MEDS: SODIUM HYPOCHLORITE 0.5% [FULL STRENGTH] 473 ML TOPICAL SOLN TP SCH ×2 (09:00→20:02)
[2017-09-01] MEDS: PREDNISONE 20 MG TABLET PO SCH (09:00)
[2017-09-01] MEDS: METFORMIN HCL 500 MG TABLET PO SCH ×2 (09:00→20:01)
[2017-09-01] MEDS: LEVOTHYROXINE 50 MCG TABLET PO SCH (09:00)
[2017-09-01 11:50] VITALS: BP 114/67
[2017-09-01 16:18] VITALS: BP 118/75
[2017-09-01 19:00] VITALS: BP 109/68
[2017-09-01] MEDS ORDERED: HYDROMORPHONE HCL 0.5 MG/0.5 ML ML ONE (22:26)
[2017-09-01] MEDS ORDERED: HYDROMORPHONE 1 MG/1 ML AMP IVP PRN (22:30)
[2017-09-01 23:00] VITALS: BP 109/69
[2017-09-02] MEDS: AMPICILLIN 2GM+NS 100ML 100 ML IV SCH ×4 (01:05→20:55)
[2017-09-02] MEDS: HYDROCODONE/ACETAMINOPHEN 7.5/325 MG TAB PO PRN (01:10)
[2017-09-02 03:00] VITALS: BP 119/67
[2017-09-02] MEDS: SODIUM HYPOCHLORITE 0.25% [HALF STRENGTH] 473 ML TOPICAL SOLN TP SCH ×3 (04:27→21:00)
[2017-09-02] MEDS ORDERED: HYDROMORPHONE HCL 0.5 MG/0.5 ML ML ONE ×4 (04:53→18:47)
[2017-09-02 05:55] LABS: HEMATOCRIT 25.6 % (42-54); MEAN CORPUSCULAR HEMOGLOBIN 28.5 pg (27.0-33.0); MEAN CORPUSCULAR HGB CONC 31.9 g/dL (32.0-36.0); MEAN CORPUSCULAR VOLUME 89.1 fL (79-99); PLATELET COUNT (AUTO) 205 K/uL (130-400); RED BLOOD CELL COUNT(AUTO) 2.87 MIL/uL (4.50-6.20); RED CELL DISTRIBUTION WIDTH 19.1 % (11.0-15.5); WHITE BLOOD COUNT (AUTO) 7.5 K/uL (4.8-10.8)
[2017-09-02 06:06] LABS: CREATININE 1.2 mg/dL (0.5-1.5); POTASSIUM 3.7 mmol/L (3.5-5.1)
[2017-09-02] MEDS: INSULIN HUMULIN R 100 UNIT/ML 3ML SQ SCH ×4 (06:21→21:00)
[2017-09-02] MEDS: PANTOPRAZOLE SODIUM 40 MG TABLET.DR PO SCH (06:22)
[2017-09-02 06:37] LABS: BAND NEUTROPHILS % (MANUAL) 4 % (0-2); EOSINOPHILS % (MANUAL) 1 % (1-6); LYMPHOCYTES % (MANUAL) 3 % (22-44); MONOCYTES % (MANUAL) 3 % (2-9); SEGMENTED NEUTROPHILS % 89 % (40-70)
[2017-09-02 06:38] LABS: MAN.DIFF COMMENT-IMPRESSION MANUAL DIFFERENTIAL
[2017-09-02 06:40] LABS: PLATELET MORPHOLOGY COMMENT ADEQUATE
[2017-09-02 07:00] VITALS: BP 109/67
[2017-09-02] MEDS: TACROLIMUS 1 MG CAPSULE PO SCH ×2 (08:00→21:00)
[2017-09-02] MEDS: PREDNISONE 20 MG TABLET PO SCH (09:00)
[2017-09-02] MEDS: LEVOTHYROXINE 50 MCG TABLET PO SCH (09:00)
[2017-09-02] MEDS: SODIUM HYPOCHLORITE 0.5% [FULL STRENGTH] 473 ML TOPICAL SOLN TP SCH ×2 (09:00→21:00)
[2017-09-02] MEDS: METFORMIN HCL 500 MG TABLET PO SCH ×2 (09:00→21:00)
[2017-09-02] MEDS: MAGNESIUM OXIDE 400 MG TABLET PO SCH ×2 (09:10→20:55)
[2017-09-02 11:00] VITALS: BP 114/67
[2017-09-02 15:38] VITALS: BP 101/76
[2017-09-02 20:00] VITALS: BP 126/70
[2017-09-02] MEDS: HYDROMORPHONE 1 MG/1 ML AMP IVP PRN (22:18)
[2017-09-02] MEDS ORDERED: SODIUM CHLORIDE 0.9% 500ML 500 ML IV ONE (23:32)
[2017-09-03] VITALS: BP 130/76
[2017-09-03] MEDS: HYDROMORPHONE 1 MG/1 ML AMP IVP PRN ×4 (03:02→20:12)
[2017-09-03 04:00] VITALS: BP 126/68
[2017-09-03] MEDS: AMPICILLIN 2GM+NS 100ML 100 ML IV SCH ×4 (04:18→18:01)
[2017-09-03 07:00] VITALS: BP 104/61
[2017-09-03] MEDS: PANTOPRAZOLE SODIUM 40 MG TABLET.DR PO SCH (07:30)
[2017-09-03] MEDS: INSULIN HUMULIN R 100 UNIT/ML 3ML SQ SCH ×4 (07:30→20:36)
[2017-09-03] MEDS: TACROLIMUS 1 MG CAPSULE PO SCH ×2 (08:00→21:00)
[2017-09-03] MEDS: MAGNESIUM OXIDE 400 MG TABLET PO SCH ×2 (08:34→20:09)
[2017-09-03] MEDS: PREDNISONE 20 MG TABLET PO SCH (08:39)
[2017-09-03] MEDS: LEVOTHYROXINE 50 MCG TABLET PO SCH (08:39)
[2017-09-03] MEDS: METFORMIN HCL 500 MG TABLET PO SCH ×2 (08:40→21:00)
[2017-09-03 10:52] VITALS: BP 95/54
[2017-09-03 16:00] VITALS: BP 122/76
[2017-09-03] MEDS: SODIUM HYPOCHLORITE 0.5% [FULL STRENGTH] 473 ML TOPICAL SOLN TP SCH (18:00)
[2017-09-03 20:00] VITALS: BP 114/68
[2017-09-04] VITALS (7 sets, daily range): BP systolic 101–113; BP diastolic 55–73
[2017-09-04] MEDS: HYDROMORPHONE 1 MG/1 ML AMP IVP PRN ×5 (00:07→16:13)
[2017-09-04] MEDS: AMPICILLIN 2GM+NS 100ML 100 ML IV SCH ×5 (00:07→23:59)
[2017-09-04] MEDS: SODIUM HYPOCHLORITE 0.5% [FULL STRENGTH] 473 ML TOPICAL SOLN TP SCH ×3 (04:49→21:00)
[2017-09-04] MEDS: INSULIN HUMULIN R 100 UNIT/ML 3ML SQ SCH ×4 (07:30→21:03)
[2017-09-04] MEDS ORDERED: FUROSEMIDE 10 MG/ML 2ML VIAL IV SCH (07:30)
[2017-09-04] MEDS: TACROLIMUS 1 MG CAPSULE PO SCH ×2 (08:00→20:45)
[2017-09-04] MEDS: PREDNISONE 20 MG TABLET PO SCH (09:00)
[2017-09-04] MEDS: LEVOTHYROXINE 50 MCG TABLET PO SCH (09:00)
[2017-09-04] MEDS: METFORMIN HCL 500 MG TABLET PO SCH ×2 (09:00→20:45)
[2017-09-04] MEDS: PANTOPRAZOLE SODIUM 40 MG TABLET.DR PO SCH (09:07)
[2017-09-04] MEDS: MAGNESIUM OXIDE 400 MG TABLET PO SCH ×2 (09:07→21:06)
[2017-09-04] MEDS ORDERED: HYDROMORPHONE HCL 0.5 MG/0.5 ML ML ONE (21:36)
[2017-09-05 04:00] VITALS: BP 112/64
[2017-09-05] MEDS ORDERED: HYDROMORPHONE HCL 0.5 MG/0.5 ML ML ONE ×4 (04:56→21:11)
[2017-09-05 05:31] LABS: CREATININE 0.7 mg/dL (0.5-1.5); POTASSIUM 3.5 mmol/L (3.5-5.1)
[2017-09-05] MEDS: AMPICILLIN 2GM+NS 100ML 100 ML IV SCH ×3 (06:02→18:36)
[2017-09-05] MEDS: INSULIN HUMULIN R 100 UNIT/ML 3ML SQ SCH ×4 (06:03→21:23)
[2017-09-05 06:12] LABS: MEAN CORPUSCULAR HEMOGLOBIN 28.5 pg (27.0-33.0); MEAN CORPUSCULAR HGB CONC 32.3 g/dL (32.0-36.0); MEAN CORPUSCULAR VOLUME 88.1 fL (79-99); PLATELET COUNT (AUTO) 185 K/uL (130-400); RED BLOOD CELL COUNT(AUTO) 2.73 MIL/uL (4.50-6.20); RED CELL DISTRIBUTION WIDTH 19.1 % (11.0-15.5); WHITE BLOOD COUNT (AUTO) 9.3 K/uL (4.8-10.8)
[2017-09-05] MEDS: PANTOPRAZOLE SODIUM 40 MG TABLET.DR PO SCH (06:53)
[2017-09-05] MEDS: TACROLIMUS 1 MG CAPSULE PO SCH ×2 (08:00→21:00)
[2017-09-05 08:16] VITALS: BP 114/72
[2017-09-05] MEDS: PREDNISONE 20 MG TABLET PO SCH (08:16)
[2017-09-05] MEDS: METFORMIN HCL 500 MG TABLET PO SCH ×2 (08:16→21:00)
[2017-09-05] MEDS: LEVOTHYROXINE 50 MCG TABLET PO SCH (08:16)
[2017-09-05] MEDS: SODIUM HYPOCHLORITE 0.25% [HALF STRENGTH] 473 ML TOPICAL SOLN TP SCH (09:00)
[2017-09-05] MEDS: SODIUM HYPOCHLORITE 0.5% [FULL STRENGTH] 473 ML TOPICAL SOLN TP SCH (09:00)
[2017-09-05] MEDS: MAGNESIUM OXIDE 400 MG TABLET PO SCH ×2 (09:17→21:12)
[2017-09-05] MEDS ORDERED: SODIUM HYPOCHLORITE 0.25% [HALF STRENGTH] 473 ML TOPICAL SOLN TP SCH (09:30)
[2017-09-05 12:19] VITALS: BP 113/68
[2017-09-05 16:43] VITALS: BP 103/64
[2017-09-05 19:55] VITALS: BP 125/73
[2017-09-05 23:02] VITALS: BP 109/63
[2017-09-06] MEDS: AMPICILLIN 2GM+NS 100ML 100 ML IV SCH ×4 (00:59→17:39)
[2017-09-06] MEDS ORDERED: HYDROMORPHONE HCL 0.5 MG/0.5 ML ML ONE ×5 (01:09→20:40)
[2017-09-06 03:50] VITALS: BP 97/63
[2017-09-06 06:11] LABS: MEAN CORPUSCULAR HEMOGLOBIN 29.5 pg (27.0-33.0); MEAN CORPUSCULAR HGB CONC 33.3 g/dL (32.0-36.0); MEAN CORPUSCULAR VOLUME 88.6 fL (79-99); PLATELET COUNT (AUTO) 183 K/uL (130-400); RED CELL DISTRIBUTION WIDTH 19.1 % (11.0-15.5); WHITE BLOOD COUNT (AUTO) 8.9 K/uL (4.8-10.8)
[2017-09-06] MEDS: INSULIN HUMULIN R 100 UNIT/ML 3ML SQ SCH ×5 (06:21→21:01)
[2017-09-06] MEDS: PANTOPRAZOLE SODIUM 40 MG TABLET.DR PO SCH (06:40)
[2017-09-06 08:00] VITALS: BP 113/66
[2017-09-06] MEDS: TACROLIMUS 1 MG CAPSULE PO SCH ×2 (08:00→20:44)
[2017-09-06] MEDS: PREDNISONE 20 MG TABLET PO SCH (08:13)
[2017-09-06] MEDS: LEVOTHYROXINE 50 MCG TABLET PO SCH (08:13)
[2017-09-06] MEDS: METFORMIN HCL 500 MG TABLET PO SCH ×2 (08:13→20:44)
[2017-09-06] MEDS: MAGNESIUM OXIDE 400 MG TABLET PO SCH ×2 (08:53→20:44)
[2017-09-06] MEDS: SODIUM HYPOCHLORITE 0.25% [HALF STRENGTH] 473 ML TOPICAL SOLN TP SCH ×2 (09:00→21:00)
[2017-09-06 12:00] VITALS: BP 106/67
[2017-09-06 16:00] VITALS: BP 113/64
[2017-09-06 19:00] VITALS: BP 119/69
[2017-09-06 23:00] VITALS: BP 106/64
[2017-09-07 03:00] VITALS: BP 126/74
[2017-09-07 06:07] LABS: MEAN CORPUSCULAR HEMOGLOBIN 29.6 pg (27.0-33.0); MEAN CORPUSCULAR HGB CONC 33.3 g/dL (32.0-36.0); MEAN CORPUSCULAR VOLUME 88.7 fL (79-99); NUCLEATED RED BLOOD CELLS 0.1 % (0.0-0.19); PLATELET COUNT (AUTO) 217 K/uL (130-400); RED BLOOD CELL COUNT(AUTO) 2.48 MIL/uL (4.50-6.20); WHITE BLOOD COUNT (AUTO) 9.5 K/uL (4.8-10.8)
[2017-09-07 06:18] LABS: CREATININE 0.8 mg/dL (0.5-1.5)
[2017-09-07] MEDS: INSULIN HUMULIN R 100 UNIT/ML 3ML SQ SCH ×4 (07:30→21:11)
[2017-09-07] MEDS: AMPICILLIN 2GM+NS 100ML 100 ML IV SCH ×4 (07:41→18:48)
[2017-09-07 08:00] VITALS: BP 112/69
[2017-09-07] MEDS: TACROLIMUS 1 MG CAPSULE PO SCH ×2 (08:00→21:00)
[2017-09-07] MEDS: PANTOPRAZOLE SODIUM 40 MG TABLET.DR PO SCH (08:13)
[2017-09-07] MEDS: FUROSEMIDE 10 MG/ML 2ML VIAL IV SCH ×2 (08:13→21:03)
[2017-09-07] MEDS: MAGNESIUM OXIDE 400 MG TABLET PO SCH ×2 (08:13→21:04)
[2017-09-07] MEDS: PREDNISONE 20 MG TABLET PO SCH (08:13)
[2017-09-07] MEDS: METFORMIN HCL 500 MG TABLET PO SCH ×2 (08:14→21:04)
[2017-09-07] MEDS: LEVOTHYROXINE 50 MCG TABLET PO SCH (08:14)
[2017-09-07] MEDS: HYDROMORPHONE 1 MG/1 ML AMP IVP PRN ×3 (08:15→23:29)
[2017-09-07] MEDS: SODIUM HYPOCHLORITE 0.25% [HALF STRENGTH] 473 ML TOPICAL SOLN TP SCH (09:00)
[2017-09-07 11:00] VITALS: BP 94/57
[2017-09-07] MEDS ORDERED: SODIUM CHLORIDE 0.9% 250 ML IV ONE (13:54)
[2017-09-07] MEDS: SODIUM HYPOCHLORITE 0.5% [FULL STRENGTH] 473 ML TOPICAL SOLN TP SCH ×2 (14:09→21:12)
[2017-09-07 16:00] VITALS: BP 128/58
[2017-09-07] MEDS ORDERED: HYDROMORPHONE HCL 0.5 MG/0.5 ML ML ONE (18:43)
[2017-09-07 19:05] VITALS: BP 109/71
[2017-09-08] MEDS: AMPICILLIN 2GM+NS 100ML 100 ML IV SCH ×5 (00:03→23:57)
[2017-09-08 00:27] VITALS: BP 109/67
[2017-09-08] MEDS: HYDROMORPHONE 1 MG/1 ML AMP IVP PRN ×4 (05:17→18:55)
[2017-09-08 05:37] LABS: CREATININE 0.9 mg/dL (0.5-1.5); POTASSIUM 3.9 mmol/L (3.5-5.1)
[2017-09-08] MEDS: INSULIN HUMULIN R 100 UNIT/ML 3ML SQ SCH ×4 (06:20→20:54)
[2017-09-08] MEDS: PANTOPRAZOLE SODIUM 40 MG TABLET.DR PO SCH ×2 (06:27→09:14)
[2017-09-08 06:40] VITALS: BP 121/77
[2017-09-08 08:00] VITALS: BP 117/67
[2017-09-08] MEDS: TACROLIMUS 1 MG CAPSULE PO SCH ×2 (08:00→20:58)
[2017-09-08] MEDS: SODIUM HYPOCHLORITE 0.5% [FULL STRENGTH] 473 ML TOPICAL SOLN TP SCH ×2 (09:00→20:58)
[2017-09-08] MEDS: LEVOTHYROXINE 50 MCG TABLET PO SCH (09:00)
[2017-09-08] MEDS: HYDROCODONE/ACETAMINOPHEN 7.5/325 MG TAB PO PRN (09:14)
[2017-09-08] MEDS: MAGNESIUM OXIDE 400 MG TABLET PO SCH ×2 (09:14→20:58)
[2017-09-08] MEDS: METFORMIN HCL 500 MG TABLET PO SCH ×2 (09:14→20:57)
[2017-09-08] MEDS: PREDNISONE 20 MG TABLET PO SCH (09:14)
[2017-09-08] MEDS: FUROSEMIDE 10 MG/ML 2ML VIAL IV SCH ×2 (09:15→18:55)
[2017-09-08 11:00] VITALS: BP 103/63
[2017-09-08 16:00] VITALS: BP 102/58
[2017-09-08 19:41] VITALS: BP 128/77
[2017-09-08] MEDS ORDERED: HYDROMORPHONE HCL 0.5 MG/0.5 ML ML ONE (22:48)
[2017-09-09] VITALS (7 sets, daily range): BP systolic 101–123; BP diastolic 58–77
[2017-09-09] MEDS: HYDROCODONE/ACETAMINOPHEN 7.5/325 MG TAB PO PRN (03:04)
[2017-09-09] MEDS: HYDROMORPHONE 1 MG/1 ML AMP IVP PRN ×5 (04:11→22:04)
[2017-09-09] MEDS: AMPICILLIN 2GM+NS 100ML 100 ML IV SCH ×3 (05:05→19:10)
[2017-09-09] MEDS: SODIUM HYPOCHLORITE 0.5% [FULL STRENGTH] 473 ML TOPICAL SOLN TP SCH ×2 (05:30→08:24)
[2017-09-09] MEDS: INSULIN HUMULIN R 100 UNIT/ML 3ML SQ SCH ×4 (06:48→21:00)
[2017-09-09] MEDS: TACROLIMUS 1 MG CAPSULE PO SCH ×2 (08:00→21:00)
[2017-09-09] MEDS: FUROSEMIDE 10 MG/ML 2ML VIAL IV SCH ×2 (08:00→21:01)
[2017-09-09] MEDS: PREDNISONE 20 MG TABLET PO SCH (08:21)
[2017-09-09] MEDS: METFORMIN HCL 500 MG TABLET PO SCH ×2 (08:21→21:00)
[2017-09-09] MEDS: MAGNESIUM OXIDE 400 MG TABLET PO SCH ×2 (08:21→20:52)
[2017-09-09] MEDS: LEVOTHYROXINE 50 MCG TABLET PO SCH (08:21)
[2017-09-09] MEDS: MAG HYDROX/AL HYDROX/SIMETH ES 30 ML SUSP UDCUP PO PRN (22:46)
[2017-09-10] MEDS: AMPICILLIN 2GM+NS 100ML 100 ML IV SCH ×5 (00:03→23:58)
[2017-09-10] MEDS: HYDROMORPHONE 1 MG/1 ML AMP IVP PRN ×5 (02:33→21:04)
[2017-09-10 04:04] VITALS: BP 100/56
[2017-09-10 05:11] LABS: HEMATOCRIT 22.1 % (42-54); MEAN CORPUSCULAR HEMOGLOBIN 29.3 pg (27.0-33.0); MEAN CORPUSCULAR VOLUME 88.8 fL (79-99); NUCLEATED RED BLOOD CELLS 0.2 % (0.0-0.19); PLATELET COUNT (AUTO) 219 K/uL (130-400); RED BLOOD CELL COUNT(AUTO) 2.48 MIL/uL (4.50-6.20); RED CELL DISTRIBUTION WIDTH 20.6 % (11.0-15.5); WHITE BLOOD COUNT (AUTO) 9.7 K/uL (4.8-10.8)
[2017-09-10 05:22] LABS: CREATININE 1.1 mg/dL (0.5-1.5); POTASSIUM 3.8 mmol/L (3.5-5.1)
[2017-09-10 07:00] VITALS: BP 102/58
[2017-09-10] MEDS: PANTOPRAZOLE SODIUM 40 MG TABLET.DR PO SCH (07:30)
[2017-09-10] MEDS: INSULIN HUMULIN R 100 UNIT/ML 3ML SQ SCH ×4 (07:30→20:53)
[2017-09-10] MEDS: TACROLIMUS 1 MG CAPSULE PO SCH ×2 (08:00→21:00)
[2017-09-10] MEDS: MAGNESIUM OXIDE 400 MG TABLET PO SCH ×2 (09:00→21:00)
[2017-09-10] MEDS: LEVOTHYROXINE 50 MCG TABLET PO SCH (09:00)
[2017-09-10] MEDS: METFORMIN HCL 500 MG TABLET PO SCH ×2 (09:00→21:00)
[2017-09-10] MEDS: PREDNISONE 20 MG TABLET PO SCH (09:00)
[2017-09-10] MEDS: SODIUM HYPOCHLORITE 0.5% [FULL STRENGTH] 473 ML TOPICAL SOLN TP SCH (09:20)
[2017-09-10] MEDS: MAG HYDROX/AL HYDROX/SIMETH ES 30 ML SUSP UDCUP PO PRN (09:40)
[2017-09-10] MEDS ORDERED: SODIUM CHLORIDE 0.9% 250 ML IV ONE (10:48)
[2017-09-10 12:00] VITALS: BP 102/54
[2017-09-10 16:14] VITALS: BP 116/64
[2017-09-10 19:20] VITALS: BP 112/72
[2017-09-10] MEDS ORDERED: FUROSEMIDE 20 MG TABLET PO SCH (21:00)
[2017-09-10 23:50] VITALS: BP 111/64
[2017-09-11 04:45] VITALS: BP 135/68
[2017-09-11] MEDS: HYDROMORPHONE 1 MG/1 ML AMP IVP PRN (04:57)
[2017-09-11] MEDS: SODIUM HYPOCHLORITE 0.5% [FULL STRENGTH] 473 ML TOPICAL SOLN TP SCH ×2 (04:58→18:33)
[2017-09-11] MEDS: INSULIN HUMULIN R 100 UNIT/ML 3ML SQ SCH ×4 (05:58→22:04)
[2017-09-11] MEDS: AMPICILLIN 2GM+NS 100ML 100 ML IV SCH ×3 (06:02→17:13)
[2017-09-11 06:15] LABS: HEMATOCRIT 22.2 % (42-54)
[2017-09-11] MEDS: ACETAMINOPHEN-CODEINE 300/30MG TAB PO PRN ×2 (06:24→06:28)
[2017-09-11] MEDS: HYDROCODONE/ACETAMINOPHEN 7.5/325 MG TAB PO PRN (06:29)
[2017-09-11 08:00] VITALS: BP 108/62
[2017-09-11] MEDS: TACROLIMUS 1 MG CAPSULE PO SCH ×2 (08:00→21:00)
[2017-09-11] MEDS ORDERED: HYDROMORPHONE 1 MG/1 ML AMP ONE ×4 (08:26→21:56)
[2017-09-11] MEDS: PANTOPRAZOLE SODIUM 40 MG TABLET.DR PO SCH (08:30)
[2017-09-11] MEDS: PREDNISONE 20 MG TABLET PO SCH (08:31)
[2017-09-11] MEDS: METFORMIN HCL 500 MG TABLET PO SCH ×2 (08:31→21:00)
[2017-09-11] MEDS: FUROSEMIDE 20 MG TABLET PO SCH (08:32)
[2017-09-11] MEDS: MAGNESIUM OXIDE 400 MG TABLET PO SCH ×2 (08:32→22:01)
[2017-09-11] MEDS: LEVOTHYROXINE 50 MCG TABLET PO SCH (08:32)
[2017-09-11] MEDS ORDERED: FUROSEMIDE 20 MG TABLET PO SCH (09:00)
[2017-09-11 11:41] VITALS: BP 98/52
[2017-09-11 16:00] VITALS: BP 121/55
[2017-09-11 19:05] VITALS: BP 113/67
[2017-09-11 22:00] VITALS: BP 122/66
[2017-09-12 00:05] VITALS: BP 120/64
[2017-09-12] MEDS: AMPICILLIN 2GM+NS 100ML 100 ML IV SCH ×4 (01:09→17:27)
[2017-09-12] MEDS ORDERED: HYDROMORPHONE 1 MG/1 ML AMP ONE ×6 (03:37→20:30)
[2017-09-12 04:48] VITALS: BP 120/64
[2017-09-12 05:28] LABS: HEMATOCRIT 26.4 % (42-54)
[2017-09-12 05:46] LABS: CREATININE 0.8 mg/dL (0.5-1.5); POTASSIUM 3.5 mmol/L (3.5-5.1)
[2017-09-12] MEDS: SODIUM HYPOCHLORITE 0.5% [FULL STRENGTH] 473 ML TOPICAL SOLN TP SCH ×2 (05:56→08:23)
[2017-09-12] MEDS: PANTOPRAZOLE SODIUM 40 MG TABLET.DR PO SCH ×2 (05:57→08:05)
[2017-09-12] MEDS: INSULIN HUMULIN R 100 UNIT/ML 3ML SQ SCH ×4 (06:42→20:38)
[2017-09-12 08:00] VITALS: BP 113/76
[2017-09-12] MEDS: LEVOTHYROXINE 50 MCG TABLET PO SCH (08:05)
[2017-09-12] MEDS: PREDNISONE 20 MG TABLET PO SCH (08:05)
[2017-09-12] MEDS: MAGNESIUM OXIDE 400 MG TABLET PO SCH ×2 (08:05→20:33)
[2017-09-12] MEDS: METFORMIN HCL 500 MG TABLET PO SCH ×2 (08:05→19:49)
[2017-09-12] MEDS: FUROSEMIDE 20 MG TABLET PO SCH (08:05)
[2017-09-12] MEDS: TACROLIMUS 1 MG CAPSULE PO SCH ×2 (08:05→19:48)
[2017-09-12] MEDS: HYDROCODONE/ACETAMINOPHEN 7.5/325 MG TAB PO PRN ×3 (10:06→18:05)
[2017-09-12 12:00] VITALS: BP 151/79
[2017-09-12] MEDS: HYDROMORPHONE HCL 2 MG/ML VIAL IVP PRN ×2 (12:01→16:23)
[2017-09-12 16:00] VITALS: BP 121/65
[2017-09-12 19:00] VITALS: BP 119/80
[2017-09-12] MEDS ORDERED: PHARMACY COMMUNICATION MISC SCH (23:00)
[2017-09-13] VITALS: BP 106/62
[2017-09-13] MEDS ORDERED: HYDROMORPHONE 1 MG/1 ML AMP ONE ×3 (00:46→08:56)
[2017-09-13] MEDS: AMPICILLIN 2GM+NS 100ML 100 ML IV SCH ×4 (00:54→17:56)
[2017-09-13] MEDS: ENOXAPARIN SODIUM 80 MG/0.8 ML SQ SCH ×3 (00:56→20:45)
[2017-09-13] MEDS: HYDROCODONE/ACETAMINOPHEN 7.5/325 MG TAB PO PRN (03:44)
[2017-09-13 04:00] VITALS: BP 120/76
[2017-09-13] MEDS: SODIUM HYPOCHLORITE 0.5% [FULL STRENGTH] 473 ML TOPICAL SOLN TP SCH (04:28)
[2017-09-13] MEDS: INSULIN HUMULIN R 100 UNIT/ML 3ML SQ SCH ×4 (05:58→20:51)
[2017-09-13] MEDS: PANTOPRAZOLE SODIUM 40 MG TABLET.DR PO SCH (05:58)
[2017-09-13 06:27] LABS: HEMATOCRIT 26.2 % (42-54)
[2017-09-13] MEDS: TACROLIMUS 1 MG CAPSULE PO SCH ×2 (08:00→20:44)
[2017-09-13 08:26] VITALS: BP 133/76
[2017-09-13] MEDS: PREDNISONE 20 MG TABLET PO SCH (09:00)
[2017-09-13] MEDS: LEVOTHYROXINE 50 MCG TABLET PO SCH (09:00)
[2017-09-13] MEDS: MAGNESIUM OXIDE 400 MG TABLET PO SCH ×2 (09:00→20:45)
[2017-09-13] MEDS ORDERED: HYDROMORPHONE 4MG/ML 1ML VIAL IVP PRN (09:00)
[2017-09-13] MEDS: METFORMIN HCL 500 MG TABLET PO SCH ×2 (09:00→20:44)
[2017-09-13] MEDS: FUROSEMIDE 20 MG TABLET PO SCH (09:06)
[2017-09-13] MEDS: HYDROMORPHONE 1 MG/1 ML AMP IVP PRN ×4 (09:08→21:54)
[2017-09-13 12:06] VITALS: BP 113/65
[2017-09-13 12:54] LABS: MEAN CORPUSCULAR HEMOGLOBIN 30.6 pg (27.0-33.0); MEAN CORPUSCULAR HGB CONC 33.9 g/dL (32.0-36.0); MEAN CORPUSCULAR VOLUME 90.4 fL (79-99); PLATELET COUNT (AUTO) 169 K/uL (130-400); RED BLOOD CELL COUNT(AUTO) 2.66 MIL/uL (4.50-6.20); RED CELL DISTRIBUTION WIDTH 19.6 % (11.0-15.5); WHITE BLOOD COUNT (AUTO) 8.5 K/uL (4.8-10.8)
[2017-09-13 13:43] LABS: PARTIAL THROMBOPLASTIN TIME 22.2 SEC (26.3-35.5); PROTHROMBIN TIME 10.5 SEC (9.6-11.6)
[2017-09-13 15:24] VITALS: BP 115/62
[2017-09-13 19:05] VITALS: BP 114/58
[2017-09-13] MEDS: ACETAMINOPHEN-CODEINE 300/30MG TAB PO PRN (21:00)
[2017-09-14] VITALS (7 sets, daily range): BP systolic 94–116; BP diastolic 53–65
[2017-09-14] MEDS: AMPICILLIN 2GM+NS 100ML 100 ML IV SCH ×3 (01:02→14:12)
[2017-09-14] MEDS: HYDROMORPHONE 1 MG/1 ML AMP IVP PRN ×5 (02:09→19:57)
[2017-09-14] MEDS: PANTOPRAZOLE SODIUM 40 MG TABLET.DR PO SCH (06:01)
[2017-09-14] MEDS: MAG HYDROX/AL HYDROX/SIMETH ES 30 ML SUSP UDCUP PO PRN ×3 (06:07→21:41)
[2017-09-14 06:33] LABS: CREATININE 0.8 mg/dL (0.5-1.5); POTASSIUM 3.6 mmol/L (3.5-5.1)
[2017-09-14] MEDS ORDERED: IPRATROPIUM/ALBUTEROL SULFATE 3 ML SOLUTION IH PRN (07:15)
[2017-09-14] MEDS: INSULIN HUMULIN R 100 UNIT/ML 3ML SQ SCH ×4 (07:30→20:39)
[2017-09-14 07:49] LABS: MEAN CORPUSCULAR HEMOGLOBIN 29.1 pg (27.0-33.0); MEAN CORPUSCULAR HGB CONC 32.4 g/dL (32.0-36.0); MEAN CORPUSCULAR VOLUME 89.8 fL (79-99); PLATELET COUNT (AUTO) 189 K/uL (130-400); RED BLOOD CELL COUNT(AUTO) 2.67 MIL/uL (4.50-6.20); RED CELL DISTRIBUTION WIDTH 19.9 % (11.0-15.5); WHITE BLOOD COUNT (AUTO) 8.8 K/uL (4.8-10.8)
[2017-09-14] MEDS: TACROLIMUS 1 MG CAPSULE PO SCH ×2 (08:00→20:06)
[2017-09-14] MEDS ORDERED: SODIUM HYPOCHLORITE 0.25% [HALF STRENGTH] 473 ML TOPICAL SOLN TP PRN (09:00)
[2017-09-14] MEDS: MAGNESIUM OXIDE 400 MG TABLET PO SCH ×2 (09:00→20:06)
[2017-09-14] MEDS: PREDNISONE 20 MG TABLET PO SCH (09:00)
[2017-09-14] MEDS: METFORMIN HCL 500 MG TABLET PO SCH ×2 (09:00→20:06)
[2017-09-14] MEDS: LEVOTHYROXINE 50 MCG TABLET PO SCH (09:00)
[2017-09-14] MEDS ORDERED: ISOVUE-300 100 ML VIAL IV ONE (11:42)
[2017-09-14] MEDS ORDERED: LIDOCAINE HCL 2% 20ML ONE (11:44)
[2017-09-14] MEDS: FUROSEMIDE 20 MG TABLET PO SCH (13:53)
[2017-09-15] MEDS: HYDROMORPHONE 1 MG/1 ML AMP IVP PRN ×5 (02:30→21:54)
[2017-09-15 03:13] VITALS: BP 112/59
[2017-09-15] MEDS: SODIUM HYPOCHLORITE 0.25% [HALF STRENGTH] 473 ML TOPICAL SOLN TP SCH ×2 (03:51→20:12)
[2017-09-15] MEDS: ACETAMINOPHEN-CODEINE 300/30MG TAB PO PRN (04:57)
[2017-09-15] MEDS: PANTOPRAZOLE SODIUM 40 MG TABLET.DR PO SCH (05:56)
[2017-09-15] MEDS: INSULIN HUMULIN R 100 UNIT/ML 3ML SQ SCH ×4 (06:09→21:00)
[2017-09-15] MEDS: TACROLIMUS 1 MG CAPSULE PO SCH ×2 (08:00→21:00)
[2017-09-15 08:21] VITALS: BP 117/63
[2017-09-15] MEDS: MAGNESIUM OXIDE 400 MG TABLET PO SCH ×2 (09:00→21:00)
[2017-09-15] MEDS: LEVOTHYROXINE 50 MCG TABLET PO SCH (09:00)
[2017-09-15] MEDS: METFORMIN HCL 500 MG TABLET PO SCH ×2 (09:00→21:00)
[2017-09-15] MEDS: PREDNISONE 20 MG TABLET PO SCH (09:00)
[2017-09-15] MEDS: FUROSEMIDE 20 MG TABLET PO SCH (09:00)
[2017-09-15 11:39] VITALS: BP 108/66
[2017-09-15 16:46] VITALS: BP 106/59
[2017-09-15 19:09] VITALS: BP 95/51
[2017-09-16] MEDS: HYDROMORPHONE 1 MG/1 ML AMP IVP PRN ×5 (02:21→20:35)
[2017-09-16 03:11] VITALS: BP 98/59
[2017-09-16] MEDS: INSULIN HUMULIN R 100 UNIT/ML 3ML SQ SCH ×4 (05:38→21:00)
[2017-09-16 05:40] LABS: MEAN CORPUSCULAR HEMOGLOBIN 30.5 pg (27.0-33.0); MEAN CORPUSCULAR HGB CONC 33.9 g/dL (32.0-36.0); MEAN CORPUSCULAR VOLUME 90.2 fL (79-99); PLATELET COUNT (AUTO) 173 K/uL (130-400); RED BLOOD CELL COUNT(AUTO) 2.12 MIL/uL (4.50-6.20); RED CELL DISTRIBUTION WIDTH 18.8 % (11.0-15.5); WHITE BLOOD COUNT (AUTO) 7.8 K/uL (4.8-10.8)
[2017-09-16 05:42] LABS: HEMATOCRIT 19.1 % (42-54)
[2017-09-16] MEDS: PANTOPRAZOLE SODIUM 40 MG TABLET.DR PO SCH (07:30)
[2017-09-16 08:00] VITALS: BP 94/55
[2017-09-16] MEDS: TACROLIMUS 1 MG CAPSULE PO SCH ×2 (08:00→20:34)
[2017-09-16] MEDS: FUROSEMIDE 20 MG TABLET PO SCH (09:00)
[2017-09-16] MEDS: LEVOTHYROXINE 50 MCG TABLET PO SCH (09:00)
[2017-09-16] MEDS: PREDNISONE 20 MG TABLET PO SCH (09:00)
[2017-09-16] MEDS: METFORMIN HCL 500 MG TABLET PO SCH ×2 (09:00→20:34)
[2017-09-16] MEDS: MAGNESIUM OXIDE 400 MG TABLET PO SCH ×2 (09:00→20:34)
[2017-09-16] MEDS: SODIUM HYPOCHLORITE 0.25% [HALF STRENGTH] 473 ML TOPICAL SOLN TP SCH ×2 (09:00→21:00)
[2017-09-16 11:53] VITALS: BP 98/54
[2017-09-16] MEDS: ACETAMINOPHEN-CODEINE 300/30MG TAB PO PRN (13:15)
[2017-09-16 16:00] VITALS: BP 102/69
[2017-09-16 20:00] VITALS: BP 101/50
[2017-09-16] MEDS ORDERED: SODIUM CHLORIDE 0.9% 250 ML IV ONE (23:02)
[2017-09-17] VITALS: BP 108/77
[2017-09-17 04:00] VITALS: BP 105/60
[2017-09-17 04:55] LABS: HEMATOCRIT 23.6 % (42-54)
[2017-09-17] MEDS: PANTOPRAZOLE SODIUM 40 MG TABLET.DR PO SCH (06:33)
[2017-09-17] MEDS: HYDROMORPHONE 1 MG/1 ML AMP IVP PRN ×3 (06:37→15:08)
[2017-09-17] MEDS: INSULIN HUMULIN R 100 UNIT/ML 3ML SQ SCH ×3 (06:41→16:30)
[2017-09-17 07:21] LABS: POTASSIUM 3.9 mmol/L (3.5-5.1)
[2017-09-17] MEDS: ACETAMINOPHEN-CODEINE 300/30MG TAB PO PRN (07:55)
[2017-09-17 08:00] VITALS: BP 91/45
[2017-09-17] MEDS: TACROLIMUS 1 MG CAPSULE PO SCH (08:00)
[2017-09-17] MEDS: PREDNISONE 20 MG TABLET PO SCH (08:46)
[2017-09-17] MEDS: METFORMIN HCL 500 MG TABLET PO SCH (08:49)
[2017-09-17] MEDS: FUROSEMIDE 20 MG TABLET PO SCH (08:50)
[2017-09-17] MEDS: LEVOTHYROXINE 50 MCG TABLET PO SCH (08:51)
[2017-09-17] MEDS: MAGNESIUM OXIDE 400 MG TABLET PO SCH (08:51)
[2017-09-17] MEDS: SODIUM HYPOCHLORITE 0.25% [HALF STRENGTH] 473 ML TOPICAL SOLN TP SCH (08:51)
[2017-09-17 12:00] VITALS: BP 77/43
[2017-09-17 16:00] VITALS: BP 98/66
[2017-09-17] MEDS ORDERED: HEPARIN SODIUM 5000UNIT/ML 1ML VIAL ONE (18:45)
[2017-10-08] MEDS ORDERED: FURO20TA4 PO (03:05)
[2017-10-08] MEDS ORDERED: HYDR8TAB43 PO (03:05)
[2017-10-08] MEDS ORDERED: PRED20TA3 PO (03:05)
== END 2017-09-17 18:43 | disposition home or self-care (01) | DRG 720 ==
LOC: EDH 11:18 → OBSVTOIN 11:19 → EDHIP 11:19 → 3BH 19:14
PROVIDERS: ADMIT Family Medicine; ATTEND Family Medicine
PROC: 30233N1 Transfusion of Nonautologous Red Blood Cells into Peripheral Vein, Percutaneous Approach (ICD-10-PCS; principal; 2017-09-14)
PROC: B51V1ZZ Fluoroscopy of Other Veins using Low Osmolar Contrast (ICD-10-PCS; 2017-09-14)
DX: A41.9 Sepsis, unspecified organism (principal); E43 Unspecified severe protein-calorie malnutrition; L89.159 Pressure ulcer of sacral region, unspecified stage; I82.402 Acute embolism and thrombosis of unspecified deep veins of left lower extremity; Z94.0 Kidney transplant status; G82.20 Paraplegia, unspecified; E11.622 Type 2 diabetes mellitus with other skin ulcer; N39.0 Urinary tract infection, site not specified; D62 Acute posthemorrhagic anemia; B95.2 Enterococcus as the cause of diseases classified elsewhere; I82.622 Acute embolism and thrombosis of deep veins of left upper extremity; E11.65 Type 2 diabetes mellitus with hyperglycemia; Z74.01 Bed confinement status; I10 Essential (primary) hypertension; N31.9 Neuromuscular dysfunction of bladder, unspecified; B96.89 Other specified bacterial agents as the cause of diseases classified elsewhere; E03.9 Hypothyroidism, unspecified; G89.29 Other chronic pain; I25.10 Atherosclerotic heart disease of native coronary artery without angina pectoris; Z16.24 Resistance to multiple antibiotics; D50.0 Iron deficiency anemia secondary to blood loss (chronic); D04.5 Carcinoma in situ of skin of trunk; I82.A12 Acute embolism and thrombosis of left axillary vein; L98.419 Non-pressure chronic ulcer of buttock with unspecified severity; E87.70 Fluid overload, unspecified; Z86.718 Personal history of other venous thrombosis and embolism; Z92.21 Personal history of antineoplastic chemotherapy; Z92.3 Personal history of irradiation; Z87.440 Personal history of urinary (tract) infections; Z68.1 Body mass index [BMI] 19.9 or less, adult
CPT/HCPCS: 36415; 36430; 71045; 74177; 76000; 80048; 80053; 80197; 81001; 82270; 82550; 82607; 82728; 82948; 83540; 83550; 83605; 84134; 84466; 84484; 85014; 85018; 85025; 85027; 85610; 85730; 86850; 86900; 86901; 86922; 87040; 87186; 93005; 93971; 94664; A4344; A4346; J0290; J1170; J1644; J1650; J1756; J1815; J1940; J2270; J3490; J7030; J7040; J7507; P9016; Q9967

== ENCOUNTER 2017-09-18 18:34 | Inpatient (IN) | payer MEDICAID ==
[~2017-09-18] VITALS: Ht 188 cm; Wt 74.8 kg
[2017-09-18 19:28] LABS: BASOPHILS % (AUTO) 0.2 % (0.0-5.0); EOSINOPHILS % (AUTO) 0.4 % (0.0-8.0); HEMATOCRIT 24.8 % (42-54); MEAN CORPUSCULAR HEMOGLOBIN 28.9 pg (27.0-33.0); MEAN CORPUSCULAR HGB CONC 33.5 g/dL (32.0-36.0); MEAN CORPUSCULAR VOLUME 86.5 fL (79-99); MONOCYTES % (AUTO) 4.1 % (3.0-13.0); NEUTROPHILS % (AUTO) 92.3 % (40.0-77.0); PLATELET COUNT (AUTO) 162 K/uL (130-400); RED BLOOD CELL COUNT(AUTO) 2.87 MIL/uL (4.50-6.20); RED CELL DISTRIBUTION WIDTH 17.9 % (11.0-15.5); WHITE BLOOD COUNT (AUTO) 5.1 K/uL (4.8-10.8)
[2017-09-18 19:36] LABS: CREATININE 1.1 mg/dL (0.5-1.5); POTASSIUM 3.8 mmol/L (3.5-5.1)
[2017-09-18] MEDS ORDERED: SODIUM CHLORIDE 0.9% 1000ML 1,000 ML IV ONE ×2 (19:40→21:26)
[2017-09-18 19:41] LABS: ALBUMIN 0.9 g/dL (3.5-5.0); BILIRUBIN,TOTAL 0.3 mg/dL (0.2-1.0); TOTAL PROTEIN, SERUM 4.4 g/dL (6.0-8.3)
[2017-09-18] MEDS ORDERED: ONDANSETRON HCL 4 MG/2 ML VIAL ONE (21:26)
[2017-09-18] MEDS ORDERED: MORPHINE SULFATE 4 MG/1ML SYG ONE (21:27)
[2017-09-19] MEDS ORDERED: ACETAMINOPHEN 325 MG TAB PO PRN (01:15)
[2017-09-19] MEDS: SODIUM CHLORIDE 0.9% 1000ML 1,000 ML IV SCH ×4 (01:15→22:21)
[2017-09-19] MEDS ORDERED: HYDROMORPHONE HCL 2 MG/ML VIAL IVP PRN (01:15)
[2017-09-19 02:30] VITALS: BP 90/54
[2017-09-19] MEDS ORDERED: HYDROMORPHONE 1 MG/1 ML AMP ONE ×6 (03:10→22:14)
[2017-09-19] MEDS ORDERED: METF500T6 PO (06:02)
[2017-09-19 08:05] VITALS: BP 91/55
[2017-09-19] MEDS: PANTOPRAZOLE SODIUM 40 MG TABLET.DR PO SCH (09:43)
[2017-09-19] MEDS: ENOXAPARIN SODIUM 40 MG/0.4 ML SYRINGE SQ SCH (09:44)
[2017-09-19 11:47] VITALS: BP 91/41
[2017-09-19 15:32] LABS: MAGNESIUM 1.8 mg/dL (1.80-2.40); POTASSIUM 3.6 mmol/L (3.5-5.1)
[2017-09-19 16:50] VITALS: BP 74/46
[2017-09-19 20:25] VITALS: BP 80/39
[2017-09-19] MEDS: TACROLIMUS 1 MG CAPSULE PO SCH (20:28)
[2017-09-19] MEDS: LACTOBACILLUS RHAMNOSUS GG 1 EACH CAP.SPRINK PO SCH (20:28)
[2017-09-19] MEDS: MAGNESIUM OXIDE 400 MG TABLET PO SCH (20:31)
[2017-09-19] MEDS: FERROUS SULFATE 325 MG TABLET.DR PO SCH (20:31)
[2017-09-19] MEDS: MIDODRINE HCL 5 MG TABLET PO SCH (21:00)
[2017-09-19] MEDS: INSULIN HUMULIN R 100 UNIT/ML 3ML SQ SCH (21:00)
[2017-09-19] MEDS ORDERED: MIDODRINE HCL 5 MG TABLET ONE (22:09)
[2017-09-19] MEDS ORDERED: MAG HYDROX/AL HYDROX/SIMETH ES 30 ML SUSP UDCUP ONE (22:09)
[2017-09-19] MEDS ORDERED: INSULIN HUMULIN R 100 UNIT/ML 3ML ONE (22:10)
[2017-09-20] VITALS (7 sets, daily range): BP systolic 72–108; BP diastolic 45–59
[2017-09-20] MEDS ORDERED: HYDROMORPHONE 1 MG/1 ML AMP ONE ×5 (02:05→23:27)
[2017-09-20] MEDS: MAG HYDROX/AL HYDROX/SIMETH ES 30 ML SUSP UDCUP PO PRN (05:51)
[2017-09-20] MEDS: MIDODRINE HCL 5 MG TABLET PO SCH ×3 (05:51→21:00)
[2017-09-20] MEDS: LEVOTHYROXINE 50 MCG TABLET PO SCH (06:09)
[2017-09-20] MEDS: INSULIN HUMULIN R 100 UNIT/ML 3ML SQ SCH ×4 (06:09→23:45)
[2017-09-20 06:25] LABS: BASOPHILS % (AUTO) 0.4 % (0.0-5.0); EOSINOPHILS % (AUTO) 0.5 % (0.0-8.0); HEMATOCRIT 24.6 % (42-54); LYMPHOCYTES % (AUTO) 3.2 % (21.0-51.0); MEAN CORPUSCULAR HEMOGLOBIN 28.8 pg (27.0-33.0); MEAN CORPUSCULAR HGB CONC 32.9 g/dL (32.0-36.0); MEAN CORPUSCULAR VOLUME 87.5 fL (79-99); MONOCYTES % (AUTO) 5.9 % (3.0-13.0); PLATELET COUNT (AUTO) 242 K/uL (130-400); RED BLOOD CELL COUNT(AUTO) 2.81 MIL/uL (4.50-6.20); RED CELL DISTRIBUTION WIDTH 17.9 % (11.0-15.5); WHITE BLOOD COUNT (AUTO) 11.4 K/uL (4.8-10.8)
[2017-09-20 06:39] LABS: ALBUMIN 0.8 g/dL (3.5-5.0); BILIRUBIN,TOTAL 0.2 mg/dL (0.2-1.0); CREATININE 1.1 mg/dL (0.5-1.5); POTASSIUM 3.9 mmol/L (3.5-5.1); TOTAL PROTEIN, SERUM 4.5 g/dL (6.0-8.3)
[2017-09-20] MEDS: TACROLIMUS 1 MG CAPSULE PO SCH ×2 (08:00→21:00)
[2017-09-20] MEDS: MAGNESIUM OXIDE 400 MG TABLET PO SCH ×2 (09:00→21:00)
[2017-09-20] MEDS: FERROUS SULFATE 325 MG TABLET.DR PO SCH ×2 (09:00→23:47)
[2017-09-20] MEDS: LACTOBACILLUS RHAMNOSUS GG 1 EACH CAP.SPRINK PO SCH ×2 (10:34→23:47)
[2017-09-20] MEDS: PANTOPRAZOLE SODIUM 40 MG TABLET.DR PO SCH (10:35)
[2017-09-20] MEDS: ENOXAPARIN SODIUM 40 MG/0.4 ML SYRINGE SQ SCH (10:36)
[2017-09-20] MEDS: HYDROMORPHONE HCL 2 MG/ML VIAL IVP PRN ×2 (11:14→16:12)
[2017-09-20] MEDS: LEVOFLOXACIN 500 MG/D5W 100 ML 100 ML IV SCH (16:11)
[2017-09-20] MEDS: SODIUM CHLORIDE 0.9% 1000ML 1,000 ML IV SCH (23:47)
[2017-09-21] MEDS ORDERED: HYDROMORPHONE 1 MG/1 ML AMP ONE ×3 (04:58→16:29)
[2017-09-21 05:00] VITALS: BP 103/35
[2017-09-21] MEDS: MIDODRINE HCL 5 MG TABLET PO SCH ×3 (05:00→19:16)
[2017-09-21 05:42] LABS: BASOPHILS % (AUTO) 0.4 % (0.0-5.0); EOSINOPHILS % (AUTO) 0.3 % (0.0-8.0); HEMATOCRIT 30.7 % (42-54); LYMPHOCYTES % (AUTO) 1.8 % (21.0-51.0); MEAN CORPUSCULAR HEMOGLOBIN 28.8 pg (27.0-33.0); MEAN CORPUSCULAR HGB CONC 33.1 g/dL (32.0-36.0); MONOCYTES % (AUTO) 2.5 % (3.0-13.0); PLATELET COUNT (AUTO) 202 K/uL (130-400); RED BLOOD CELL COUNT(AUTO) 3.52 MIL/uL (4.50-6.20); RED CELL DISTRIBUTION WIDTH 17.9 % (11.0-15.5); WHITE BLOOD COUNT (AUTO) 9.4 K/uL (4.8-10.8)
[2017-09-21 05:52] LABS: CREATININE 1.4 mg/dL (0.5-1.5); POTASSIUM 4.2 mmol/L (3.5-5.1)
[2017-09-21] MEDS: LEVOTHYROXINE 50 MCG TABLET PO SCH (06:30)
[2017-09-21] MEDS: INSULIN HUMULIN R 100 UNIT/ML 3ML SQ SCH ×4 (06:33→21:00)
[2017-09-21] MEDS: TACROLIMUS 1 MG CAPSULE PO SCH ×2 (08:00→21:00)
[2017-09-21] MEDS: FERROUS SULFATE 325 MG TABLET.DR PO SCH ×2 (09:00→21:00)
[2017-09-21] MEDS: MAGNESIUM OXIDE 400 MG TABLET PO SCH ×2 (09:00→21:00)
[2017-09-21] MEDS: LACTOBACILLUS RHAMNOSUS GG 1 EACH CAP.SPRINK PO SCH ×2 (10:20→21:23)
[2017-09-21] MEDS: ENOXAPARIN SODIUM 40 MG/0.4 ML SYRINGE SQ SCH (10:20)
[2017-09-21] MEDS: PANTOPRAZOLE SODIUM 40 MG TABLET.DR PO SCH (10:20)
[2017-09-21 12:00] VITALS: BP 84/42
[2017-09-21] MEDS: LEVOFLOXACIN 500 MG/D5W 100 ML 100 ML IV SCH (13:54)
[2017-09-21 16:00] VITALS: BP 95/60
[2017-09-21 16:22] LABS: APPEARANCE,URINE Turbid (CLEAR); BILIRUBIN,URINE Negative (NEGATIVE); COLOR,URINE Dark Yellow (YELLOW); GLUCOSE, URINE (UA) Negative (NEGATIVE); KETONES,URINE Negative (NEGATIVE); LEUKOCYTE ESTERASE ,URINE Large (NEGATIVE); NITRATE,URINE Negative (NEGATIVE); OCCULT BLOOD,URINE Moderate (NEGATIVE); PROTEIN,URINE POS 1+ (NEGATIVE)
[2017-09-21 16:37] LABS: BACTERIA,URINE Moderate /HPF (None Seen); RBC,URINE None Seen /HPF (0-1); SQUAMOUS EPITHELIAL CELL,UR 0-2 /HPF (0-2); WBC,URINE 51-100 /HPF (0-1)
[2017-09-21] MEDS: SODIUM CHLORIDE 0.9% 1000ML 1,000 ML IV SCH (20:03)
[2017-09-21 20:04] VITALS: BP 117/93
[2017-09-21] MEDS: MAG HYDROX/AL HYDROX/SIMETH ES 30 ML SUSP UDCUP PO PRN (21:22)
[2017-09-21 23:21] LABS: CREATINE KINASE MB < 0.5 ng/mL (0.5-3.6); CREATINE KINASE, TOTAL 10 U/L (21-232); MYOGLOBIN 19 ng/mL (10-92); TROPONIN I < 0.04 ng/mL (0.00-0.06)
[2017-09-22 04:16] VITALS: BP 103/54
[2017-09-22] MEDS ORDERED: HYDROMORPHONE 1 MG/1 ML AMP ONE (04:24)
[2017-09-22] MEDS: MIDODRINE HCL 5 MG TABLET PO SCH ×3 (04:45→20:08)
[2017-09-22 04:57] LABS: BASOPHILS % (AUTO) 0.2 % (0.0-5.0); HEMATOCRIT 31.7 % (42-54); LYMPHOCYTES % (AUTO) 4.3 % (21.0-51.0); MEAN CORPUSCULAR HEMOGLOBIN 29.3 pg (27.0-33.0); MEAN CORPUSCULAR HGB CONC 33.6 g/dL (32.0-36.0); MEAN CORPUSCULAR VOLUME 87.1 fL (79-99); MONOCYTES % (AUTO) 4.1 % (3.0-13.0); NEUTROPHILS % (AUTO) 90.4 % (40.0-77.0); PLATELET COUNT (AUTO) 131 K/uL (130-400); RED BLOOD CELL COUNT(AUTO) 3.64 MIL/uL (4.50-6.20); RED CELL DISTRIBUTION WIDTH 17.9 % (11.0-15.5); WHITE BLOOD COUNT (AUTO) 6.4 K/uL (4.8-10.8)
[2017-09-22 05:05] LABS: CREATININE 1.6 mg/dL (0.5-1.5); POTASSIUM 4.3 mmol/L (3.5-5.1)
[2017-09-22] MEDS: LEVOTHYROXINE 50 MCG TABLET PO SCH (06:30)
[2017-09-22] MEDS: INSULIN HUMULIN R 100 UNIT/ML 3ML SQ SCH ×4 (06:53→21:00)
[2017-09-22 08:00] VITALS: BP 92/54
[2017-09-22] MEDS: TACROLIMUS 1 MG CAPSULE PO SCH ×2 (08:00→21:00)
[2017-09-22] MEDS: LACTOBACILLUS RHAMNOSUS GG 1 EACH CAP.SPRINK PO SCH ×2 (09:00→20:08)
[2017-09-22] MEDS: PANTOPRAZOLE SODIUM 40 MG TABLET.DR PO SCH (09:00)
[2017-09-22] MEDS: MAGNESIUM OXIDE 400 MG TABLET PO SCH ×2 (09:00→21:00)
[2017-09-22] MEDS: FERROUS SULFATE 325 MG TABLET.DR PO SCH ×2 (09:00→21:00)
[2017-09-22] MEDS: SODIUM CHLORIDE 0.9% 1000ML 1,000 ML IV SCH (09:23)
[2017-09-22] MEDS: ENOXAPARIN SODIUM 40 MG/0.4 ML SYRINGE SQ SCH (11:08)
[2017-09-22 11:53] VITALS: BP 76/48
[2017-09-22] MEDS ORDERED: HYDROMORPHONE HCL 2 MG/ML VIAL IVP PRN (13:00)
[2017-09-22] MEDS: LEVOFLOXACIN 500 MG/D5W 100 ML 100 ML IV SCH (13:20)
[2017-09-22] MEDS: HYDROMORPHONE 1 MG/1 ML AMP IVP PRN ×2 (14:47→20:10)
[2017-09-22 16:00] VITALS: BP 88/51
[2017-09-22 19:00] VITALS: BP 98/62
[2017-09-22 23:00] VITALS: BP 92/56
[2017-09-23] MEDS: HYDROMORPHONE 1 MG/1 ML AMP IVP PRN ×3 (01:01→11:34)
[2017-09-23 03:00] VITALS: BP 105/67
[2017-09-23] MEDS: SODIUM CHLORIDE 0.9% 1000ML 1,000 ML IV SCH ×2 (03:06→12:03)
[2017-09-23] MEDS: LEVOTHYROXINE 50 MCG TABLET PO SCH (06:30)
[2017-09-23 07:00] VITALS: BP 124/62
[2017-09-23] MEDS: MIDODRINE HCL 5 MG TABLET PO SCH ×2 (07:09→11:36)
[2017-09-23] MEDS: INSULIN HUMULIN R 100 UNIT/ML 3ML SQ SCH ×2 (07:13→11:30)
[2017-09-23] MEDS: TACROLIMUS 1 MG CAPSULE PO SCH (08:00)
[2017-09-23] MEDS: PANTOPRAZOLE SODIUM 40 MG TABLET.DR PO SCH (09:00)
[2017-09-23] MEDS: FERROUS SULFATE 325 MG TABLET.DR PO SCH (09:00)
[2017-09-23] MEDS: MAGNESIUM OXIDE 400 MG TABLET PO SCH (09:00)
[2017-09-23] MEDS: LACTOBACILLUS RHAMNOSUS GG 1 EACH CAP.SPRINK PO SCH (09:00)
[2017-09-23] MEDS: ENOXAPARIN SODIUM 40 MG/0.4 ML SYRINGE SQ SCH (10:08)
[2017-09-23 12:17] VITALS: BP 99/59
[2017-09-23] MEDS: LEVOFLOXACIN 500 MG/D5W 100 ML 100 ML IV SCH (13:38)
[2017-09-23] MEDS ORDERED: LEVO500T2 PO (13:54)
[2017-09-23] MEDS ORDERED: PANT40TA PO (13:54)
[2017-09-23] MEDS ORDERED: LACT1CAP79 PO (13:54)
[2017-09-23] MEDS ORDERED: Midodrine Hcl PO (13:54)
[2017-10-08] MEDS ORDERED: HYDR8TAB43 PO (03:05)
[2017-10-08] MEDS ORDERED: FURO20TA4 PO (03:05)
[2017-10-08] MEDS ORDERED: PRED20TA3 PO (03:05)
== END 2017-09-23 16:20 | disposition hospice, home (50) | DRG 422 ==
LOC: EDH 18:34 → OBSVTOIN 18:35 → EDHIP 18:35 → 3DH 09-19 02:13
PROVIDERS: ADMIT Internal Medicine Nephrology; ATTEND Internal Medicine Nephrology
DX: E86.0 Dehydration (principal); E43 Unspecified severe protein-calorie malnutrition; L89.159 Pressure ulcer of sacral region, unspecified stage; L89.209 Pressure ulcer of unspecified hip, unspecified stage; C76.52 Malignant neoplasm of left lower limb; G82.20 Paraplegia, unspecified; Z94.0 Kidney transplant status; N39.0 Urinary tract infection, site not specified; N31.9 Neuromuscular dysfunction of bladder, unspecified; D64.9 Anemia, unspecified; E11.9 Type 2 diabetes mellitus without complications; I95.9 Hypotension, unspecified; Z68.21 Body mass index [BMI] 21.0-21.9, adult
CPT/HCPCS: 36415; 71045; 80048; 80053; 81001; 82270; 82550; 82553; 82948; 83735; 83874; 84132; 84484; 85025; 87040; 87070; 87076; 87077; 87088; 87186; 93005; C9113; J1170; J1650; J1815; J1956; J2270; J2405; J7030

== ENCOUNTER 2017-09-25 10:55 | Inpatient (IN) | payer MEDICAID ==
[~2017-09-25] VITALS: Ht 182.9 cm; Wt 70.3 kg
[~2017-09-25 10:55] MED LIST changes: -HYDR-4064 PO; +LACT1CAP79 PO; +LEVO500T2 PO; +Midodrine Hcl PO; +PANT40TA PO; -PRED20TA3 PO; -TRAM50TA2 PO
[2017-09-25] MEDS ORDERED: SODIUM CHLORIDE 0.9% 1000ML 1,000 ML IV ONE ×2 (12:07→15:53)
[2017-09-25 12:15] LABS: BASOPHILS % (AUTO) 0.1 % (0.0-5.0); EOSINOPHILS % (AUTO) 0.5 % (0.0-8.0); HEMATOCRIT 24.4 % (42-54); LYMPHOCYTES % (AUTO) 3.3 % (21.0-51.0); MEAN CORPUSCULAR HEMOGLOBIN 28.6 pg (27.0-33.0); MEAN CORPUSCULAR HGB CONC 32.5 g/dL (32.0-36.0); MEAN CORPUSCULAR VOLUME 87.9 fL (79-99); MONOCYTES % (AUTO) 3.6 % (3.0-13.0); NEUTROPHILS % (AUTO) 92.5 % (40.0-77.0); PLATELET COUNT (AUTO) 171 K/uL (130-400); RED BLOOD CELL COUNT(AUTO) 2.78 MIL/uL (4.50-6.20); RED CELL DISTRIBUTION WIDTH 17.7 % (11.0-15.5); WHITE BLOOD COUNT (AUTO) 10.9 K/uL (4.8-10.8)
[2017-09-25 12:49] LABS: CARBON DIOXIDE 21 mmol/L (21-32); CHLORIDE 102 mmol/L (101-111); CREATININE 1.7 mg/dL (0.5-1.5); GLOMERULAR FILTR. RATE CALC 44 mL/min (>60); GLUCOSE,RANDOM 134 mg/dL (70-105); POTASSIUM 4.7 mmol/L (3.5-5.1); SODIUM SERUM 131 mmol/L (136-145); UREA NITROGEN, BLOOD 64 mg/dL (7-18)
[2017-09-25 12:54] LABS: ASPARTATE AMINOTRANSFERASE 8 U/L (10-37); BILIRUBIN,TOTAL 0.3 mg/dL (0.2-1.0); CREATINE KINASE, TOTAL 11 U/L (21-232)
[2017-09-25 12:56] LABS: ALANINE AMINOTRANSFERASE < 6 U/L (12-78)
[2017-09-25] MEDS ORDERED: HYDROMORPHONE HCL 0.5 MG/0.5 ML ML ONE ×2 (13:06→16:14)
[2017-09-25] MEDS ORDERED: ONDANSETRON HCL 4 MG/2 ML VIAL ONE (13:06)
[2017-09-25] MEDS ORDERED: CEFTRIAXONE SODIUM 1 GM ONE (14:26)
[2017-09-25 14:40] LABS: BILIRUBIN,URINE NEGATIVE (NEGATIVE); COLOR,URINE YELLOW (YELLOW); GLUCOSE, URINE (UA) NEGATIVE (NEGATIVE); KETONES,URINE 5 mg/dL (NEGATIVE); LEUKOCYTE ESTERASE ,URINE LARGE (NEGATIVE); NITRATE,URINE NEGATIVE (NEGATIVE); OCCULT BLOOD,URINE LARGE (NEGATIVE); PROTEIN,URINE NEGATIVE (NEGATIVE); UROBILINOGEN,URINE 0.2 mg/dL (0.2-1.0)
[2017-09-25 14:53] LABS: APPEARANCE,URINE CLOUDY (CLEAR)
[2017-09-25 15:06] LABS: BACTERIA,URINE Many /HPF (None Seen); RBC,URINE None Seen /HPF (0-1); WBC,URINE >100 /HPF (0-1)
[2017-09-25] MEDS ORDERED: MEROPENEM 1 GM VIAL ONE (15:53)
[2017-09-25] MEDS: MEROPENEM 500 MG VIAL IVP SCH ×2 (16:45→23:52)
[2017-09-25 19:15] VITALS: BP 115/78
[2017-09-25] MEDS ORDERED: KETOROLAC TROMETHAMINE 30MG/ML IM PRN (23:30)
[2017-09-25] MEDS ORDERED: KETOROLAC TROMETHAMINE 30MG/ML ONE (23:33)
[2017-09-25 23:45] VITALS: BP 110/64
[2017-09-26 03:44] VITALS: BP 100/70
[2017-09-26 05:56] LABS: HEMATOCRIT 23.9 % (42-54); MEAN CORPUSCULAR HEMOGLOBIN 29.5 pg (27.0-33.0); MEAN CORPUSCULAR HGB CONC 33.6 g/dL (32.0-36.0); MEAN CORPUSCULAR VOLUME 87.9 fL (79-99); PLATELET COUNT (AUTO) 146 K/uL (130-400); RED BLOOD CELL COUNT(AUTO) 2.72 MIL/uL (4.50-6.20); RED CELL DISTRIBUTION WIDTH 17.9 % (11.0-15.5); WHITE BLOOD COUNT (AUTO) 13.6 K/uL (4.8-10.8)
[2017-09-26 06:15] LABS: CREATININE 1.7 mg/dL (0.5-1.5); POTASSIUM 4.5 mmol/L (3.5-5.1)
[2017-09-26] MEDS ORDERED: HYDROMORPHONE 4MG/ML 1ML VIAL IVP PRN (06:30)
[2017-09-26] MEDS ORDERED: ACETAMINOPHEN EXTRA STRENGTH 500 MG TABLET PO PRN (06:45)
[2017-09-26] MEDS: MIDODRINE HCL 5 MG TABLET PO SCH ×3 (06:45→21:27)
[2017-09-26] MEDS: PANTOPRAZOLE SODIUM 40 MG TABLET.DR PO SCH (07:51)
[2017-09-26 08:00] VITALS: BP_SYST 118; BP_SYST 193; BP_DIAS 72; BP_DIAS 99
[2017-09-26] MEDS: FERROUS SULFATE 325 MG TABLET.DR PO SCH ×2 (08:00→17:00)
[2017-09-26] MEDS: METFORMIN HCL 500 MG TABLET PO SCH ×3 (08:00→17:00)
[2017-09-26] MEDS: TACROLIMUS 1 MG CAPSULE PO SCH ×2 (08:00→21:00)
[2017-09-26] MEDS: LACTOBACILLUS RHAMNOSUS GG 1 EACH CAP.SPRINK PO SCH ×2 (08:33→21:00)
[2017-09-26] MEDS: MAGNESIUM OXIDE 400 MG TABLET PO SCH ×2 (08:34→21:00)
[2017-09-26] MEDS: LEVOTHYROXINE 50 MCG TABLET PO SCH (08:34)
[2017-09-26] MEDS: MEROPENEM 500 MG VIAL IVP SCH ×2 (08:34→15:48)
[2017-09-26] MEDS: HYDROMORPHONE 1 MG/1 ML AMP IVP PRN ×3 (08:35→22:30)
[2017-09-26] MEDS: SODIUM CHLORIDE 0.9% 1000ML 1,000 ML IV SCH (11:00)
[2017-09-26 12:00] VITALS: BP 97/57
[2017-09-26 12:45] VITALS: BP 94/52
[2017-09-26 16:00] VITALS: BP 85/59
[2017-09-26 19:58] VITALS: BP 96/50
[2017-09-27] VITALS: BP 92/60
[2017-09-27] MEDS: MEROPENEM 500 MG VIAL IVP SCH ×3 (00:13→17:33)
[2017-09-27] MEDS: SODIUM CHLORIDE 0.9% 1000ML 1,000 ML IV SCH ×2 (00:51→13:40)
[2017-09-27 04:00] VITALS: BP 111/67
[2017-09-27] MEDS: HYDROMORPHONE 1 MG/1 ML AMP IVP PRN ×4 (04:18→22:31)
[2017-09-27] MEDS: PANTOPRAZOLE SODIUM 40 MG TABLET.DR PO SCH (06:11)
[2017-09-27] MEDS: MIDODRINE HCL 5 MG TABLET PO SCH ×3 (06:11→22:45)
[2017-09-27 07:30] VITALS: BP 96/57
[2017-09-27] MEDS: FERROUS SULFATE 325 MG TABLET.DR PO SCH ×2 (08:00→17:00)
[2017-09-27] MEDS: TACROLIMUS 1 MG CAPSULE PO SCH ×2 (08:00→20:26)
[2017-09-27] MEDS: METFORMIN HCL 500 MG TABLET PO SCH ×2 (08:00→17:00)
[2017-09-27 08:19] LABS: CREATININE 1.7 mg/dL (0.5-1.5); POTASSIUM 4.3 mmol/L (3.5-5.1)
[2017-09-27] MEDS: LEVOTHYROXINE 50 MCG TABLET PO SCH (09:00)
[2017-09-27] MEDS: MAGNESIUM OXIDE 400 MG TABLET PO SCH ×2 (09:00→20:26)
[2017-09-27] MEDS: LACTOBACILLUS RHAMNOSUS GG 1 EACH CAP.SPRINK PO SCH ×2 (09:39→20:25)
[2017-09-27 11:00] VITALS: BP 111/65
[2017-09-27] MEDS ORDERED: ONDANSETRON HCL 4 MG/2 ML VIAL IVP PRN (12:15)
[2017-09-27 16:00] VITALS: BP 109/59
[2017-09-27 20:33] VITALS: BP 108/68
[2017-09-27] MEDS ORDERED: SODIUM HYPOCHLORITE 0.5% [FULL STRENGTH] 473 ML TOPICAL SOLN TP SCH (21:00)
[2017-09-28] VITALS (7 sets, daily range): BP systolic 91–119; BP diastolic 58–77
[2017-09-28] MEDS: MEROPENEM 500 MG VIAL IVP SCH ×3 (00:15→16:51)
[2017-09-28] MEDS: HYDROMORPHONE 1 MG/1 ML AMP IVP PRN ×4 (05:54→22:12)
[2017-09-28 06:01] LABS: BASOPHILS % (AUTO) 0.2 % (0.0-5.0); EOSINOPHILS % (AUTO) 0.6 % (0.0-8.0); HEMATOCRIT 23.6 % (42-54); LYMPHOCYTES % (AUTO) 4.9 % (21.0-51.0); MEAN CORPUSCULAR HEMOGLOBIN 29.1 pg (27.0-33.0); MEAN CORPUSCULAR HGB CONC 33.4 g/dL (32.0-36.0); MEAN CORPUSCULAR VOLUME 87.1 fL (79-99); MONOCYTES % (AUTO) 3.8 % (3.0-13.0); NEUTROPHILS % (AUTO) 90.5 % (40.0-77.0); PLATELET COUNT (AUTO) 200 K/uL (130-400); RED BLOOD CELL COUNT(AUTO) 2.71 MIL/uL (4.50-6.20); RED CELL DISTRIBUTION WIDTH 17.9 % (11.0-15.5); WHITE BLOOD COUNT (AUTO) 16.7 K/uL (4.8-10.8)
[2017-09-28] MEDS: MIDODRINE HCL 5 MG TABLET PO SCH ×3 (06:03→21:02)
[2017-09-28 06:11] LABS: CREATININE 1.5 mg/dL (0.5-1.5); POTASSIUM 4.2 mmol/L (3.5-5.1)
[2017-09-28] MEDS: SODIUM CHLORIDE 0.9% 1000ML 1,000 ML IV SCH ×2 (06:20→16:53)
[2017-09-28] MEDS: PANTOPRAZOLE SODIUM 40 MG TABLET.DR PO SCH (07:30)
[2017-09-28] MEDS: METFORMIN HCL 500 MG TABLET PO SCH ×2 (08:00→16:56)
[2017-09-28] MEDS: FERROUS SULFATE 325 MG TABLET.DR PO SCH ×2 (08:00→16:56)
[2017-09-28] MEDS: TACROLIMUS 1 MG CAPSULE PO SCH ×2 (08:00→21:00)
[2017-09-28] MEDS: MAGNESIUM OXIDE 400 MG TABLET PO SCH ×2 (09:00→21:00)
[2017-09-28] MEDS: LEVOTHYROXINE 50 MCG TABLET PO SCH (09:00)
[2017-09-28] MEDS: LACTOBACILLUS RHAMNOSUS GG 1 EACH CAP.SPRINK PO SCH ×2 (09:43→20:01)
[2017-09-28] MEDS: IPRATROPIUM/ALBUTEROL SULFATE 3 ML SOLUTION IH PRN (18:55)
[2017-09-29] MEDS: MEROPENEM 500 MG VIAL IVP SCH ×4 (01:02→23:34)
[2017-09-29] MEDS: HYDROMORPHONE 1 MG/1 ML AMP IVP PRN ×5 (02:28→23:29)
[2017-09-29] MEDS: SODIUM CHLORIDE 0.9% 1000ML 1,000 ML IV SCH ×2 (02:28→16:22)
[2017-09-29 03:32] VITALS: BP 110/57
[2017-09-29] MEDS: TACROLIMUS 1 MG CAPSULE PO SCH ×2 (08:00→21:00)
[2017-09-29 08:03] VITALS: BP 106/59
[2017-09-29] MEDS: LEVOTHYROXINE 50 MCG TABLET PO SCH (08:09)
[2017-09-29] MEDS: METFORMIN HCL 500 MG TABLET PO SCH ×2 (08:24→16:20)
[2017-09-29] MEDS: LACTOBACILLUS RHAMNOSUS GG 1 EACH CAP.SPRINK PO SCH ×2 (08:24→21:00)
[2017-09-29] MEDS: FERROUS SULFATE 325 MG TABLET.DR PO SCH ×2 (08:24→16:20)
[2017-09-29] MEDS: MAGNESIUM OXIDE 400 MG TABLET PO SCH ×2 (08:24→21:00)
[2017-09-29] MEDS: PANTOPRAZOLE SODIUM 40 MG TABLET.DR PO SCH (08:24)
[2017-09-29] MEDS: SODIUM HYPOCHLORITE 0.5% [FULL STRENGTH] 473 ML TOPICAL SOLN TP SCH (08:25)
[2017-09-29 08:27] LABS: CREATININE 1.4 mg/dL (0.5-1.5)
[2017-09-29] MEDS: MIDODRINE HCL 5 MG TABLET PO SCH ×3 (08:28→23:34)
[2017-09-29 11:52] VITALS: BP 113/67
[2017-09-29] MEDS ORDERED: BISACODYL 10 MG SUPP.RECT RC SCH (14:00)
[2017-09-29] MEDS ORDERED: HYDROMORPHONE 4MG/ML 1ML VIAL IVP PRN (15:30)
[2017-09-29 16:00] VITALS: BP 106/59
[2017-09-29] MEDS ORDERED: HYDROMORPHONE 1 MG/1 ML AMP ONE (16:08)
[2017-09-29 20:00] VITALS: BP 120/75
[2017-09-29] MEDS: BISACODYL 10 MG SUPP.RECT RC SCH (23:35)
[2017-09-29 23:41] VITALS: BP 126/72
[2017-09-30 04:00] VITALS: BP 134/76
[2017-09-30] MEDS: MIDODRINE HCL 5 MG TABLET PO SCH ×3 (04:51→20:57)
[2017-09-30] MEDS: HYDROMORPHONE 1 MG/1 ML AMP IVP PRN ×4 (04:51→23:55)
[2017-09-30 05:18] LABS: HEMATOCRIT 23.3 % (42-54); MEAN CORPUSCULAR HEMOGLOBIN 28.3 pg (27.0-33.0); MEAN CORPUSCULAR HGB CONC 32.2 g/dL (32.0-36.0); MEAN CORPUSCULAR VOLUME 87.9 fL (79-99); PLATELET COUNT (AUTO) 173 K/uL (130-400); RED BLOOD CELL COUNT(AUTO) 2.65 MIL/uL (4.50-6.20); RED CELL DISTRIBUTION WIDTH 18.2 % (11.0-15.5); WHITE BLOOD COUNT (AUTO) 16.9 K/uL (4.8-10.8)
[2017-09-30 05:26] LABS: CREATININE 1.1 mg/dL (0.5-1.5); MAGNESIUM 2.1 mg/dL (1.80-2.40); POTASSIUM 3.8 mmol/L (3.5-5.1)
[2017-09-30] MEDS: PANTOPRAZOLE SODIUM 40 MG TABLET.DR PO SCH (07:30)
[2017-09-30 08:00] VITALS: BP 102/63
[2017-09-30] MEDS: FERROUS SULFATE 325 MG TABLET.DR PO SCH ×2 (08:00→17:00)
[2017-09-30] MEDS: TACROLIMUS 1 MG CAPSULE PO SCH ×2 (08:00→20:57)
[2017-09-30] MEDS: METFORMIN HCL 500 MG TABLET PO SCH ×2 (08:00→17:00)
[2017-09-30] MEDS: MEROPENEM 500 MG VIAL IVP SCH ×3 (08:45→23:54)
[2017-09-30] MEDS: LEVOTHYROXINE 50 MCG TABLET PO SCH (09:00)
[2017-09-30] MEDS: LACTOBACILLUS RHAMNOSUS GG 1 EACH CAP.SPRINK PO SCH ×2 (09:00→20:57)
[2017-09-30] MEDS: MAGNESIUM OXIDE 400 MG TABLET PO SCH ×2 (09:00→20:57)
[2017-09-30] MEDS: SODIUM HYPOCHLORITE 0.5% [FULL STRENGTH] 473 ML TOPICAL SOLN TP SCH (09:00)
[2017-09-30 11:00] VITALS: BP 101/59
[2017-09-30] MEDS ORDERED: MAG HYDROX/AL HYDROX/SIMETH ES 30 ML SUSP UDCUP PO PRN (11:30)
[2017-09-30] MEDS: SODIUM CHLORIDE 0.9% 1000ML 1,000 ML IV SCH (13:04)
[2017-09-30 16:00] VITALS: BP 123/64
[2017-09-30] MEDS ORDERED: SODIUM CHLORIDE 0.9% 10 ML VIAL ONE (18:07)
[2017-09-30 20:00] VITALS: BP 104/68
[2017-09-30] MEDS: BISACODYL 10 MG SUPP.RECT RC SCH (21:00)
[2017-10-01] VITALS: BP 123/73
[2017-10-01] MEDS: SODIUM CHLORIDE 0.9% 1000ML 1,000 ML IV SCH ×3 (00:02→23:59)
[2017-10-01 04:00] VITALS: BP 122/84
[2017-10-01] MEDS: HYDROMORPHONE 1 MG/1 ML AMP IVP PRN ×5 (05:20→21:56)
[2017-10-01] MEDS: SODIUM HYPOCHLORITE 0.5% [FULL STRENGTH] 473 ML TOPICAL SOLN TP SCH (05:21)
[2017-10-01 06:18] LABS: VITAMIN D, 25-HYDROXY 9.1 ng/mL (30.0-100.0)
[2017-10-01] MEDS: PANTOPRAZOLE SODIUM 40 MG TABLET.DR PO SCH (07:30)
[2017-10-01 08:00] VITALS: BP 118/78
[2017-10-01] MEDS: MEROPENEM 500 MG VIAL IVP SCH ×2 (09:08→16:37)
[2017-10-01] MEDS: IPRATROPIUM/ALBUTEROL SULFATE 3 ML SOLUTION IH PRN ×2 (09:08→18:55)
[2017-10-01] MEDS: LACTOBACILLUS RHAMNOSUS GG 1 EACH CAP.SPRINK PO SCH ×2 (09:09→21:59)
[2017-10-01] MEDS: TACROLIMUS 1 MG CAPSULE PO SCH ×2 (09:09→21:00)
[2017-10-01] MEDS: MAGNESIUM OXIDE 400 MG TABLET PO SCH ×2 (09:09→21:00)
[2017-10-01] MEDS: FERROUS SULFATE 325 MG TABLET.DR PO SCH ×2 (09:10→16:38)
[2017-10-01] MEDS: LEVOTHYROXINE 50 MCG TABLET PO SCH (09:10)
[2017-10-01] MEDS: METFORMIN HCL 500 MG TABLET PO SCH ×2 (09:10→16:38)
[2017-10-01 11:00] VITALS: BP 115/76
[2017-10-01 14:34] LABS: HEMATOCRIT 24.8 % (42-54); MEAN CORPUSCULAR HEMOGLOBIN 27.6 pg (27.0-33.0); MEAN CORPUSCULAR HGB CONC 31.3 g/dL (32.0-36.0); PLATELET COUNT (AUTO) 230 K/uL (130-400); RED BLOOD CELL COUNT(AUTO) 2.81 MIL/uL (4.50-6.20); RED CELL DISTRIBUTION WIDTH 18.5 % (11.0-15.5)
[2017-10-01 14:44] LABS: CREATININE 1.3 mg/dL (0.5-1.5); POTASSIUM 4.3 mmol/L (3.5-5.1)
[2017-10-01] MEDS: MIDODRINE HCL 5 MG TABLET PO SCH ×2 (14:45→21:58)
[2017-10-01 14:53] LABS: BILIRUBIN,TOTAL 0.2 mg/dL (0.2-1.0); TOTAL PROTEIN, SERUM 4.9 g/dL (6.0-8.3)
[2017-10-01 16:00] VITALS: BP 111/65
[2017-10-01 20:00] VITALS: BP 103/70
[2017-10-01] MEDS: BISACODYL 10 MG SUPP.RECT RC SCH (21:00)
[2017-10-01] MEDS: LACTULOSE 20 GM/30 ML UDCUP PO PRN (21:57)
[2017-10-02] VITALS: BP 126/82
[2017-10-02] MEDS: MEROPENEM 500 MG VIAL IVP SCH ×2 (00:24→09:53)
[2017-10-02] MEDS: BISACODYL 10 MG SUPP.RECT RC SCH (00:30)
[2017-10-02] MEDS: HYDROMORPHONE 1 MG/1 ML AMP IVP PRN ×5 (01:55→14:31)
[2017-10-02 04:00] VITALS: BP 124/74
[2017-10-02 05:38] LABS: MEAN CORPUSCULAR HEMOGLOBIN 28.6 pg (27.0-33.0); MEAN CORPUSCULAR HGB CONC 32.4 g/dL (32.0-36.0); MEAN CORPUSCULAR VOLUME 88.2 fL (79-99); PLATELET COUNT (AUTO) 242 K/uL (130-400); RED BLOOD CELL COUNT(AUTO) 2.83 MIL/uL (4.50-6.20); RED CELL DISTRIBUTION WIDTH 18.5 % (11.0-15.5); WHITE BLOOD COUNT (AUTO) 23.4 K/uL (4.8-10.8)
[2017-10-02 05:40] LABS: CREATININE 1.3 mg/dL (0.5-1.5); POTASSIUM 4.7 mmol/L (3.5-5.1)
[2017-10-02] MEDS: LACTULOSE 20 GM/30 ML UDCUP PO PRN (06:20)
[2017-10-02] MEDS: PANTOPRAZOLE SODIUM 40 MG TABLET.DR PO SCH (06:20)
[2017-10-02] MEDS: IPRATROPIUM/ALBUTEROL SULFATE 3 ML SOLUTION IH PRN ×2 (06:56→10:04)
[2017-10-02 08:00] VITALS: BP 113/74
[2017-10-02] MEDS: METFORMIN HCL 500 MG TABLET PO SCH (08:00)
[2017-10-02] MEDS: FERROUS SULFATE 325 MG TABLET.DR PO SCH (08:00)
[2017-10-02] MEDS: TACROLIMUS 1 MG CAPSULE PO SCH (08:00)
[2017-10-02] MEDS: MAGNESIUM OXIDE 400 MG TABLET PO SCH (09:00)
[2017-10-02] MEDS: LACTOBACILLUS RHAMNOSUS GG 1 EACH CAP.SPRINK PO SCH (09:51)
[2017-10-02] MEDS: LEVOTHYROXINE 50 MCG TABLET PO SCH (09:51)
[2017-10-02 12:00] VITALS: BP 116/84
[2017-10-02] MEDS ORDERED: HEPARIN SODIUM/PF 100UNIT/ML 5ML SYRINGE IV SCH (13:15)
[2017-10-02] MEDS: MIDODRINE HCL 5 MG TABLET PO SCH (14:32)
[2017-10-08] MEDS ORDERED: FURO20TA4 PO (03:05)
[2017-10-08] MEDS ORDERED: HYDR8TAB43 PO (03:05)
[2017-10-08] MEDS ORDERED: PRED20TA3 PO (03:05)
== END 2017-10-02 17:40 | disposition home or self-care (01) | DRG 469 ==
LOC: EDH 10:55 → EDHIP 10:56 → UNDOADMIN 15:40 → 3BH 19:00
PROVIDERS: ADMIT Internal Medicine Nephrology; ATTEND Internal Medicine Nephrology
DX: N17.0 Acute kidney failure with tubular necrosis (principal); E43 Unspecified severe protein-calorie malnutrition; C79.9 Secondary malignant neoplasm of unspecified site; G82.20 Paraplegia, unspecified; I95.9 Hypotension, unspecified; N39.0 Urinary tract infection, site not specified; B96.4 Proteus (mirabilis) (morganii) as the cause of diseases classified elsewhere; B96.5 Pseudomonas (aeruginosa) (mallei) (pseudomallei) as the cause of diseases classified elsewhere; G89.29 Other chronic pain; I10 Essential (primary) hypertension; N31.9 Neuromuscular dysfunction of bladder, unspecified; N17.9 Acute kidney failure, unspecified; E11.9 Type 2 diabetes mellitus without complications; C44.529 Squamous cell carcinoma of skin of other part of trunk; R53.81 Other malaise; D63.8 Anemia in other chronic diseases classified elsewhere; R26.2 Difficulty in walking, not elsewhere classified; Z94.0 Kidney transplant status; Z99.3 Dependence on wheelchair; Z79.899 Other long term (current) drug therapy; Z86.718 Personal history of other venous thrombosis and embolism; Z92.21 Personal history of antineoplastic chemotherapy; Z68.21 Body mass index [BMI] 21.0-21.9, adult; Z92.3 Personal history of irradiation
CPT/HCPCS: 36415; 71045; 80048; 80053; 80197; 81001; 82306; 82550; 82607; 82746; 82948; 83605; 83735; 84484; 85025; 85027; 87040; 87077; 87088; 87186; 93005; 94640; 94664; 99291; A4218; J0696; J1170; J1642; J1885; J2185; J2405; J7030; J7507